=== PATIENT | female | born 1950 | race Two or more races ===

== ENCOUNTER 2020-12-21 09:25 | Outpatient (REF) | payer MEDICARE, SELFPAY ==
[2020-12-21 10:18] LABS: Alanine Aminotransferase 13 U/L (0-31); Albumin Level 4.1 g/dL (3.5-5.0); Alkaline Phosphatase 63 U/L (39-117); Anion Gap 16 (12-20); Aspartate Amino Transferase 15 U/L (5-31); Bilirubin Total 0.9 mg/dL (0.0-1.0); Blood Urea Nitrogen 18 mg/dL (9-16); Calcium 9.6 mg/dL (8.4-10.2); Carbon Dioxide 24 mmol/L (22-29); Chloride 101 mmol/L (96-108); Estimated Glomerular Filt Rate 53; Glucose Random 247 mg/dL (60-115); Potassium 4.6 mmol/L (3.3-5.1); Sodium 136 mmol/L (135-145)
== END 2020-12-21 09:26 | disposition home or self-care (01) ==
LOC: HO.LAB 09:25
PROVIDERS: PCP Internal Medicine; Visit Provider Student in an Organized Health Care Education/Training Program
DX: M81.0 Age-related osteoporosis without current pathological fracture (principal)
CPT/HCPCS: 36415; 80053

== ENCOUNTER 2020-12-27 10:34 | Outpatient (REF) | payer MEDICARE, SELFPAY | END 2020-12-27 10:35 | disposition home or self-care (01) | LOC: HO.MDS 10:34 | PROVIDERS: PCP Internal Medicine; Visit Provider Student in an Organized Health Care Education/Training Program | DX: M81.0 Age-related osteoporosis without current pathological fracture (principal) | CPT/HCPCS: 96365; J3489 ==

== ENCOUNTER 2021-02-01 13:33 | Outpatient (REF) | payer MEDICARE, SELFPAY ==
--- NOTE | ~2021-02-01 | MM_ITS ---
EXAMINATION: BONE DENSITOMETRY CLINICAL INDICATION: Screening for osteoporosis. COMPARISON: Previous BD dated 10/24/2018 and baseline BD dated 11/22/2006. TECHNIQUE: Using a [employer] DXA System (software version: 13.1) manufactured by [employer], dual-energy x-ray absorptiometry was performed of the lumbar spine and left hip. The images are of good technical quality. Summary results are attached. FINDINGS: AP SPINE L1-L4: Current: BMD 0.945 g/cm2, Z-score 0.2, T-score -2.0, osteopenia, 0.4% decrease from previous, 6.1% increase from baseline (<5% change is not significant). Prior: BMD 0.949 g/cm2. Baseline: BMD 0.891 g/cm2. LEFT FEMUR, NECK: Current: BMD 0.866 g/cm2, Z-score 0.8, T-score -1.2, osteopenia. Prior: BMD 0.816 g/cm2. Baseline: BMD 0.852 g/cm2. LEFT FEMUR, TOTAL: Current: BMD 0.985 g/cm2, Z-score 1.7, T-score -0.2, normal, 0.8% decrease from previous, 2.4% decrease from baseline (<5% change is not significant). Prior: BMD 0.993 g/cm2. Baseline: BMD 1.009 g/cm2. IDENTIFIED RISK FACTORS: Height loss, menopause, secondary osteoporosis, osteoporosis. HISTORY OF FRACTURE: None listed. MEDICATIONS: Calcium. MM/XR DEXA axial skeleton IMPRESSION: 1. DIAGNOSIS: Osteopenia based on the lowest T-score value of -2.0 in the lumbar spine applying World Health Organization criteria. 2. 10-YEAR FRACTURE RISK PREDICTION, FRAX: Major osteoporotic fracture (clinical spine, forearm, hip or shoulder) 5.2%. Hip fracture 0.7%. 3. Treatment Recommendations: NOF guidelines recommend consideration for treatment in postmenopausal women and men age 50 and older presenting with the following: -A hip or vertebral (clinical or morphometric) fracture. -T-score less than or equal to -2.5 at the femoral neck or spine after appropriate evaluation to exclude secondary causes. -Low bone mass at the hip or spine and a 10-year fracture probability by FRAX of greater than or equal to 3% for hip fracture or greater than or equal to 20% for major osteoporotic fracture based on the [place] adapted WHO algorithm. 4. Other Recommendations: All treatment decisions require clinical judgment and consideration of individual patient factors, including patient preferences, comorbidities, previous drug use, risk factors not captured in the FRAX model (e.g. frailty, falls, vitamin D deficiency, increased bone turnover, interval significant decline in bone density) and possible under or overestimation of fracture risk by FRAX. Additional medical evaluation for secondary cause of low bone mineral density may be appropriate. FUTURE SCAN RECOMMENDATION: People with diagnosed cases of osteoporosis or at high risk for fracture should have regular bone mineral density tests. For patients eligible for Medicare, routine testing is allowed once every 2 years. The testing frequency can be increased to one year for patients who have rapidly progressing disease, those who are receiving or discontinuing medical therapy to restore bone mass, or have additional risk factors.
--- NOTE | ~2021-02-01 | MM_ITS ---
EXAMINATION: MM SCREENING DIGITAL BREAST TOMOSYNTHESIS, BILATERAL CLINICAL INFORMATION: Screening. Asymptomatic. The lifetime risk of breast cancer based on the Tyrer-Cuzick Model is 2%. COMPARISON: Mammography: 08/26/2018, 11/10/2016, 11/09/2015. TECHNIQUE: Digital breast tomosynthesis is performed in both the craniocaudal and mediolateral oblique views along with computer-aided detection (CAD). Synthesized 2D images are generated from the tomosynthesis. Additional left MLO view is provided. FINDINGS: There are scattered areas of fibroglandular density (ACR BI-RADS breast composition Category b). There are no significant masses, abnormal calcifications, or other abnormalities. Parenchymal pattern is similar to prior studies. No developing density. No significant changes. Low left axillary tail node is stable. MM/MM tomosynthesis screening BI IMPRESSION: No mammographic evidence of malignancy. ASSESSMENT: BI-RADS 2: Benign RECOMMENDATION: Routine annual mammography screening. This patient's information was entered into a reminder system with a target due date for their next mammogram.
== END 2021-02-01 13:34 | disposition home or self-care (01) ==
LOC: HO.MAMMO 13:33
PROVIDERS: PCP Internal Medicine; Visit Provider Internal Medicine
DX: Z12.31 Encounter for screening mammogram for malignant neoplasm of breast (principal); Z13.820 Encounter for screening for osteoporosis; M85.80 Other specified disorders of bone density and structure, unspecified site; Z78.0 Asymptomatic menopausal state; Z79.899 Other long term (current) drug therapy
CPT/HCPCS: 77063; 77067; 77080

== ENCOUNTER → 2021-02-09 13:20 | Outpatient (BNVA) | payer MEDICARE, SELFPAY | PROVIDERS: Visit Provider Nurse Practitioner Family | DX: M81.0 Age-related osteoporosis without current pathological fracture (principal) | CPT/HCPCS: 99212 ==

== ENCOUNTER 2021-05-17 11:47 | Outpatient (REF) | payer MEDICARE, SELFPAY ==
--- NOTE | ~2021-05-17 | CT_ITS ---
EXAMINATION: CT ABDOMEN AND PELVIS WITH CONTRAST CLINICAL INFORMATION: Abnormal weight loss. COMPARISON: None TECHNIQUE: Multidetector volumetric images were obtained from the superior aspect of the liver through the pubic symphysis following administration 85 mL of Omnipaque 350 intravenous contrast. Sagittal and coronal reformatted images were obtained on the technologist's workstation. Oral contrast: No. This CT examination was performed using dose optimization techniques as appropriate, variously including the following: *Automated exposure control *Adjustment of mA and/or kV according to patient size (this includes techniques or standardized protocols for targeted exams where dose is matched to indication/reason for exam; i.e. extremities or head) *Use of iterative reconstruction technique DLP: 207 mGy-cm FINDINGS: LUNG BASES: The lungs are hyperinflated with plate-like atelectasis right middle lobe. LIVER, GALLBLADDER, AND BILIARY TREE: The liver is normal in size, lobulated shape, and attenuation. There is focal attenuation seen in the right hepatic lobe along the ligament likely focal fatty infiltration. There is a punctate 4 mm hypodensity in the right hepatic lobe, probable cyst, however, too small to completely characterize. No additional lesions seen. No biliary ductal dilatation is present. There are punctate radiopaque densities along the dependent portion of the gallbladder suspicious for small stones or gallbladder wall calcification. No gallbladder wall thickening seen. PANCREAS: Unremarkable. SPLEEN: Unremarkable. ADRENAL GLANDS: Unremarkable. KIDNEYS AND URETERS: The kidneys are normal in size, shape, and attenuation. No hydronephrosis, hydroureter, or calculi seen. No perinephric stranding. There is a 2.1 x 2.0 cm cyst midpole right kidney. Also visualized is a 1.5 x 1.2 cm cyst midpole left kidney. There are bilateral parapelvic renal cysts and bilateral extrarenal kidney pelvises noted. BLADDER: Unremarkable. GASTROINTESTINAL TRACT: There is moderate scattered stool seen throughout the colon without distention. Moderate oral contrast is seen in the colon and small bowel loops with small bowel loop caliber to be normal. There is a filling defect along the posterior cecum measuring 2.2 x 2.5 cm on axial image 63/5, suspicious for an underlying lesion. The appendix is not visualized. The stomach is nondistended. ABDOMINAL WALL: No significant hernia is appreciated. LYMPH NODES: There is a 4 mm mesenteric nodule in the mid pelvis axial image 58/3 and a right ileocecal mesenteric 6 mm lymph node axial image 53/3. These are within normal limits. VASCULAR: Unremarkable. PELVIC VISCERA: The uterus is retroverted and appears unremarkable. No adnexal mass or free fluid seen. OSSEOUS STRUCTURES: There is grade 1 retrolisthesis L2 over L3 with moderate ventral spondylosis. There is gas and vacuum disc phenomena L4-L5 disc level. No aggressive lytic or sclerotic process seen. CT/CT abdomen pelvis w con IMPRESSION: Suspect soft tissue mass along the posterior cecum. Recommend endoscopy. There is moderate stool and oral contrast seen throughout the colon suggesting mild constipation and also limiting colonic evaluation. The appendix is not seen. The small bowel loops are unremarkable. Small 4 mm lower mesenteric lymph node in the lower pelvis and 6 mm lymph node in the right ileocecal mesentery are seen but are within normal limits. Fleischner guidelines were followed.
[2021-05-17 13:00] LABS: Blood Urea Nitrogen 24 mg/dL (9-16); Estimated Glomerular Filt Rate 56
[2021-05-17] MEDS: iohexoL 350 MG/ML 100 ML INFUS..BTL IV (15:12)
[2021-05-17] MEDS: Barium Sulfate Oral (Berry) 450 ML ORAL.SUSP 900 ML PO (15:12)
== END 2021-05-17 11:48 | disposition home or self-care (01) ==
LOC: HO.CT 11:47
PROVIDERS: Visit Provider Internal Medicine
DX: R63.4 Abnormal weight loss (principal)
CPT/HCPCS: 36415; 74177; 82565; 84520; Q9967

== ENCOUNTER 2021-08-05 10:42 | Outpatient (REF) | payer MEDICARE, SELFPAY ==
[2021-08-05 12:12] LABS: MANUAL DIFF FLAG NO
[2021-08-05 12:36] LABS: Basophils Percent Auto 0.4 % (0-2); Eosinophils Absolute Auto 0.9 X10*3/uL (0.0-0.4); Eosinophils Percent Auto 9.6 % (0-4); Hematocrit 36.8 % (37.0-47.0); Hemoglobin 11.4 g/dl (12.0-16.0); Imm Gran Abs Auto 0.02 X10*3/uL (0.00-0.03); Imm Gran Pct Auto 0.2 % (0.0-0.4); Lymphocytes Absolute Auto 3.4 X10*3/uL (1.2-4.9); Lymphocytes Percent Auto 37.4 % (20-40); Mean Corpuscular Hemoglobin 28.6 pg (27.0-33.0); Mean Corpuscular Volume 92.5 fL (80.0-98.0); Mean Platelet Volume 10.1 fL (9.4-12.3); Monocytes Absolute Auto 0.6 X10*3/uL (0.1-1.2); Monocytes Percent Auto 7.1 % (2-11); Neutrophils Absolute Auto 4.1 x10*3/uL (2.0-8.3); Neutrophils Percent Auto 45.3 % (45-73); Platelet Count 269 X10*3/uL (160-400); Red Blood Count 3.98 X10*6/uL (4.20-5.50); Red Cell Distribution Width 14.6 % (11.0-16.0)
[2021-08-05 12:51] LABS: Alanine Aminotransferase 11 U/L (0-31); Albumin Level 3.9 g/dL (3.5-5.0); Alkaline Phosphatase 54 U/L (39-117); Anion Gap 10 (12-20); Aspartate Amino Transferase 14 U/L (5-31); Bilirubin Total 0.3 mg/dL (0.0-1.0); Blood Urea Nitrogen 24 mg/dL (9-16); Calcium 9.5 mg/dL (8.4-10.2); Carbon Dioxide 30 mmol/L (22-29); Chloride 102 mmol/L (96-108); Estimated Glomerular Filt Rate 59; Glucose Random 184 mg/dL (60-115); Potassium 4.8 mmol/L (3.3-5.1); Sodium 137 mmol/L (135-145); Total Protein 6.6 g/dL (6.5-8.0)
== END 2021-08-05 10:43 | disposition home or self-care (01) ==
LOC: HO.LAB 10:42
PROVIDERS: PCP Internal Medicine; Referring Provider Internal Medicine; Visit Provider Nurse Practitioner
DX: R93.3 Abnormal findings on diagnostic imaging of other parts of digestive tract (principal); R63.4 Abnormal weight loss; Z98.890 Other specified postprocedural states
CPT/HCPCS: 36415; 80053; 82378; 85025; 99202

== ENCOUNTER 2021-08-30 12:18 | Day surgery (SDC) | payer MEDICARE, SELFPAY ==
[2021-08-30 12:46] VITALS: BP 121/50; PULSE 63; RESP 19; TEMP 36.8; O2SAT 98; BMI 23.3
[2021-08-30 12:47] LABS: Glucose, Whole Blood 138 mg/dL (60-115)
--- NOTE | 2021-08-30 12:56 | P.HPSUR_ITS ---
Pre-Procedural Eval Section A Date of Service: 08/30/21 Section B Chief Complaint: Abnormal weight loss,abnormal findings Relevant Family History (Specify if Yes): No Relevant Social History: None Present Medications: see Short Stay Collaborative assessment Medical History: Significant History (Hypertension High cholesterol Depression History of esophageal stricture Fibromyalgia syndrome Chronic low back pain Diabetes Insomnia Osteoporosis) History of Previous Operations: Relevant previous surgery/procedure and date(s) (H/O colonoscopy History of varicose vein ligation and stripping S/P trigger finger release) Allergies: Allergies Allergy/AdvReac Type Severity Reaction Status Date / Time No Known Drug Allergies Allergy Unknown UNKNOWN Verified 08/05/21 11:13 Review of Systems Sugical H&P ROS: Negative: Constitution, Cardiovascular, Respiratory, Neur ological, Psychiatric, Hem-Onc, Allergic/Immunologic, Gastrointestinal, Genitourinary, Musculoskeletal, Integumentary, Endocrine and Eyes/Ears/Nose/Throat Exam Surgical H&P Exam: Normal: HEENT, Normal: Heart, Normal: Lungs, Normal: Extremities, Normal: Abdomen, Normal: Skin and Normal: Neurological Plan Diagnosis/Plan: Unchanged I have reviewed the history and physical and performed a pertinent physical examination on my patient. No changes have occurred unless specified.
--- NOTE | 2021-08-30 13:06 | HO.ANESPROP2 ---
HPI - Anesthesia Eval Consult details Narrative: 71 F for EGD and colonoscopy chronic nasal congestion PMFSH Active Problems Active Problems: All Active Problems (Updated 08/05/21 @ 11:49 by CLAYTON Keane) Weight loss (Acute) Abnormal CT scan, colon (Acute) Insomnia (Acute) Depression (Acute) Chronic low back pain (Acute) Hypertension (Acute) Fibromyalgia (Acute) Hypercholesterolemia (Acute) Lumbar spondylitis (Acute) Diabetes mellitus (Acute) Osteopenia (Acute) Osteoporosis (Acute) Family History Family history of problems with anesthesia: No Surgical History Surgical History (Updated 08/05/21 @ 11:00 by CLAYTON Keane) H/O colonoscopy History of varicose vein ligation and stripping S/P trigger finger release History of Problems with Anesthesia: No Social History Social History Housing: Apartment Are you a primary hemodialysis patient care specialist to a significant other at home: No Do you presently have visiting nurse or other home services: No Alcohol intake: never Patient Tobacco Use Status: Never used Tobacco e-Cigarette/Vaping Use: Never Used Use of substances other than those prescribed or required for medical reasons: No Are you DNR?: No Advance Directives: No Advance Directives Information Provided: Yes Recently lost weight without trying: No Nutrition Risks: No Nutritional Risk service: No Current occupation: retired [employer] Allergies Allergy/AdvReac Type Severity Reaction Status Date / Time No Known Drug Allergies Allergy Unknown UNKNOWN Verified 08/05/21 11:13 Home Medications Medication Instructions Recorded Confirmed Last Taken Type acetaminophen 500 mg capsule 1,000 mg PO Q6H PRN 02/09/21 Unknown History (Mapap (acetaminophen)) aspirin 81 mg tablet,delayed 81 mg PO DAILY 02/09/21 08/27/21 History release (Adult Low Dose Aspirin) calcium carbonate 500 mg calcium 1,000 mg PO DAILY 02/09/21 Unknown History (1,250 mg) tablet (Oyster Shell Calcium) mecobalamin (vitamin B12) 1,000 1,000 mcg PO DAILY 02/09/21 Unknown History mcg chewable tablet metformin 500 mg tablet,extended 1,000 mg PO BID tab 02/09/21 Unknown History release 24hr multivitamin-ferrous 1 tab PO DAILY 02/09/21 Unknown History fumarate-folic acid 18 mg-400 mcg tablet (Certavite-Antioxidant) simvastatin 40 mg tablet 40 mg PO DAILY 02/09/21 Unknown History latanoprost 0.005 % eye drops 1 drp OPHTHALMIC (EYE) QPM 08/05/21 Unknown History omega 3-kju-ycf-fish oil 100 cap PO 08/05/21 08/27/21 History mg-160 mg-1,000 mg capsule (Fish Oil) Exam Exam Date and Time: August 30, 2021 1306 Height,Weight and Vital Signs: Height 4 ft 8 in Weight 47.174 kg Last Vital Signs Temp 98.2 F 08/30/21 12:46 Pulse 63 08/30/21 12:46 Resp 19 08/30/21 12:46 BP 121/50 L 08/30/21 12:46 Pulse Ox 98 08/30/21 12:46 Pertinent Lab Results Pertinent Lab Results: Laboratory Tests 08/30/21 12:43 POC Glucose 138 H Airway Mallampati Class: II Loose/Missing/Broken Teeth: Yes (Poor dentation ) Assessment and Plan Final Anesthetic Review Family History of Problems with Anesthesia: No History of Problems with Anesthesia: No NPO: Yes ASA Class: II Final Preanesthetic Review: Meds/Allgs Chart Reviewed, Consent Obtained/Reviewed and Anes Risks/Benef Reviewed Patient Risk: Intermediate Procedure Risk: Intermediate
--- NOTE | 2021-08-30 13:18 | P.BOP_ITS ---
Brief Operative Note Date of Service: 08/30/21 Pre-op diagnosis: weight loss abn imaging Post-op diagnosis: same Procedure: see op note Surgeon: Kaylene Duncan MD Anesthesia: MAC Was an Machine Operator Packaging used for this Procedure?: No Estimated blood loss (mL): 0 Condition: stable Disposition: PACU
--- NOTE | 2021-08-30 13:18 | P.OP_ITS ---
Operative Note Operative Note Date of Service: 08/30/21 Narrative: Operative Information Procedure Description: EGD, Colonoscopy FLEXIBLE TRANSORAL UPPER GASTROINTESTINAL ENDOSCOPY AND COLONOSCOPY PROCEDURE NOTE UPPER ENDOSCOPY Consent: Indications for the procedure and potential complications of bleeding, perforation, reaction to medications and missed diagnosis were discussed with the patient and informed consent was obtained. Instrument: Olympus GIF H 190 J mid size upper endoscope Monitoring: Vital signs and clinical assessment, continuous EKG monitoring, Pulse oximetry, Carbon Dioxide monitoring and blood pressure monitoring were done throughout the procedure. Procedure: The patient was placed in the left lateral decubitis position and pre-procedure medications were administered and a bite block was placed. The endoscope was inserted into the mouth and advanced under direct vision to the third part of duodenum. A careful inspection was made as the upper endoscope was withdrawn including a retroflexed examination of the proximal stomach; Findings and interventions are described below. Findings: Larynx:normal Esophagus: GE junction at 33 cm, diaphragm hiatus at 35 cm, slightly irregular GEJ bx taken, 2 cm hiatal hernia noted Stomach: Mild gastritis . Biopsies were obtained. Grade 2 flap valve on retroflexed examination of the cardia. Duodenum: Normal bulb and descending duodenum, bx taken Intervention: Biopsies as noted above COLONOSCOPY Instrument: Olympus variable stiffness pediatric scope 190L Colonoscopy Monitoring: Vital signs and clinical assessment, continuous EKG monitoring, Pulse oximetry, Carbon Dioxide monitoring and blood pressure monitoring were done throughout the procedure. Colon withdrawal time was 8 minutes. Procedure: The patient was placed in the left lateral decubitis position and pre-procedure medications were administered. After a digital rectal examination of the ano-rectum, the video colonoscope was inserted into the rectum and advanced through the colon to the cecum/TI. The colonoscope was slowly withdrawn in a retrograde panoramic fashion and the colon mucosa was carefully examined including a retroflexed view of the rectum. Findings and interventions are described below. Procedure Difficulty: moderate due to looping Findings: Terminal Ileum-normal Cecum: diminutive polyp 2-3 mm removed with cold forceps, random bx taken from cecum and ascending colon Ascending Colon: normal Transverse Colon -normal Descending Colon:normal Sigmoid Colon: normal Rectum: Retroflexion with small internal hemorrhoids, grade I Anorectum - normal Colon preparation: Cameron Bowel Preparation Scale Right colon; 3 Transverse colon: 3 Left colon; 3 (0 = Unprepared colon segment with mucosa not seen due to solid stool that cannot be cleared. 1 = Portion of mucosa of the colon segment seen, but other areas of the colon segment not well seen due to staining, residual stool and/or opaque liquid. 2 = Minor amount of residual staining, small fragments of stool and/or opaque liquid, but mucosa of colon segment seen well. 3 = Entire mucosa of colon segment seen well with no residual staining, small fragments of stool or opaque liquid) Impression and Post Procedure Diagnosis: Endoscopy Findings: small hiatal hernia Colonoscopy Findings: cecal polyp internal hemorrhoids Plan: Await Pathology results Repeat Colonoscopy in 5 years if adenomatous polyp or earlier if clinically indicated. If hyperplastic then 10 yr if health allows High fiber diet leaflet avoid straining at stool, epsom salts and sitz bath, anusol supps or cream No mass seen in cecum or filling defect as noted on CT scan, recommend repeat CT scan Above findings were reviewed with the patient and relevant handouts were provided if indicated.
[2021-08-30 13:52] VITALS: BP 105/53; PULSE 58; RESP 18; TEMP 36.2; O2SAT 100
[2021-08-30 14:07] VITALS: PULSE 60; RESP 18; TEMP 36.2; O2SAT 98
== END 2021-08-30 15:08 | disposition home or self-care (01) ==
PROVIDERS: PCP Internal Medicine; Visit Provider Internal Medicine Gastroenterology
PROC: (CPT 45380; principal; 2021-08-30 13:30)
DX: R93.3 Abnormal findings on diagnostic imaging of other parts of digestive tract (principal); K63.5 Polyp of colon; K64.0 First degree hemorrhoids; R63.4 Abnormal weight loss; Z68.1 Body mass index [BMI] 19.9 or less, adult; K29.60 Other gastritis without bleeding; K29.80 Duodenitis without bleeding; K44.9 Diaphragmatic hernia without obstruction or gangrene; I10 Essential (primary) hypertension; E11.9 Type 2 diabetes mellitus without complications; Z79.84 Long term (current) use of oral hypoglycemic drugs; Z79.899 Other long term (current) drug therapy
CPT/HCPCS: 45380; 43239; 82947; 88305; 88342

== ENCOUNTER → 2021-09-30 10:31 | Outpatient (BNVA) | payer MEDICARE, SELFPAY | PROVIDERS: PCP Internal Medicine; Referring Provider Internal Medicine; Visit Provider Nurse Practitioner | DX: R93.3 Abnormal findings on diagnostic imaging of other parts of digestive tract (principal); K21.9 Gastro-esophageal reflux disease without esophagitis; Z98.890 Other specified postprocedural states | CPT/HCPCS: 99212 ==

== ENCOUNTER → 2021-10-27 13:08 | Outpatient (BNVA) | payer MEDICARE, SELFPAY | PROVIDERS: PCP Internal Medicine; Referring Provider Internal Medicine; Visit Provider Nurse Practitioner | DX: K21.9 Gastro-esophageal reflux disease without esophagitis (principal); R93.3 Abnormal findings on diagnostic imaging of other parts of digestive tract | CPT/HCPCS: 99212 ==

== ENCOUNTER 2022-02-03 13:02 | Outpatient (REF) | payer MEDICARE, SELFPAY ==
--- NOTE | ~2022-02-03 | MM_ITS ---
EXAMINATION: MM SCREENING DIGITAL BREAST TOMOSYNTHESIS, BILATERAL CLINICAL INFORMATION: Screening. Asymptomatic. The lifetime risk of breast cancer based on the Tyrer-Cuzick Model is 2%. COMPARISON: Mammography: 02/01/2021, 08/26/2018, 11/10/2016 TECHNIQUE: Digital breast tomosynthesis is performed in both the craniocaudal and mediolateral oblique views along with computer-aided detection (CAD). Synthesized 2D images are generated from the tomosynthesis. FINDINGS: There are scattered areas of fibroglandular density (ACR BI-RADS breast composition Category b). There are no significant masses, abnormal calcifications, or other abnormalities. Parenchymal pattern is similar to prior studies. The axilla and skin contours are unremarkable. MM/MM tomosynthesis screening BI IMPRESSION: No mammographic evidence of malignancy. ASSESSMENT: BI-RADS 1: Negative RECOMMENDATION: Routine annual mammography screening. This patient's information was entered into a reminder system with a target due date for their next mammogram.
== END 2022-02-03 13:03 | disposition home or self-care (01) ==
LOC: HO.MAMMO 13:02
PROVIDERS: Visit Provider Internal Medicine
DX: Z12.31 Encounter for screening mammogram for malignant neoplasm of breast (principal)
CPT/HCPCS: 77063; 77067

== ENCOUNTER 2022-02-07 14:14 | Outpatient (REF) | payer MEDICARE, SELFPAY ==
--- NOTE | ~2022-02-07 | CT_ITS ---
EXAMINATION: CT ABDOMEN AND PELVIS WITHOUT CONTRAST CLINICAL INFORMATION: Abnormal finding on diagnostic imaging of other organ COMPARISON: Previous CT of the abdomen and pelvis February 2021 TECHNIQUE: Multidetector volumetric imaging was performed from the superior aspect of the liver through the pubic symphysis. Sagittal and coronal reformatted images were obtained on the technologist's workstation. This CT examination was performed using dose optimization techniques as appropriate, variously including the following: *Automated exposure control *Adjustment of mA and/or kV according to patient size (this includes techniques or standardized protocols for targeted exams where dose is matched to indication/reason for exam; i.e. extremities or head) *Use of iterative reconstruction technique DLP: 268 mGy-cm FINDINGS: LUNG BASES: There is a 4 mm right lower lobe pulmonary nodule axial image 9 series 3 that is stable. The lung bases are otherwise clear. LIVER, GALLBLADDER, AND BILIARY TREE: The liver is normal in size, shape, and attenuation. No focal hepatic lesion or biliary ductal dilatation is present. The gallbladder is contracted. There is a small gallstone in the gallbladder. PANCREAS: Unremarkable. SPLEEN: Unremarkable. ADRENAL GLANDS: Unremarkable. KIDNEYS AND URETERS: There are small low-attenuation renal lesions suggestive of cysts. These appear stable. No imaging follow-up. Kidneys are otherwise normal. BLADDER: Unremarkable. GASTROINTESTINAL TRACT: There is a large amount stool throughout the colon and distention suggestive of severe constipation. No mass is appreciated however evaluation is limited due to large amount of stool. Small bowel is normal. The stomach is normal. The appendix is not seen. ABDOMINAL WALL: No significant hernia is appreciated. LYMPH NODES: Normal. VASCULAR: Unremarkable. PELVIC VISCERA: Unremarkable. OSSEOUS STRUCTURES: Mild degenerative changes of the spine. There is mild anterior subluxation of L4 with respect to L3 and L5 probably related to facet arthritis. CT/CT abdomen pelvis wo IV con IMPRESSION: Severe constipation. Bilateral renal cysts. Fleischner guidelines were followed.
[2022-02-07] MEDS: Barium Sulfate Oral (Vanilla) 450 ML ORAL.SUSP 900 ML PO (16:32)
== END 2022-02-07 14:15 | disposition home or self-care (01) ==
LOC: HO.CT 14:14
PROVIDERS: Visit Provider Nurse Practitioner
DX: R93.3 Abnormal findings on diagnostic imaging of other parts of digestive tract (principal)
CPT/HCPCS: 74176

== ENCOUNTER 2022-02-10 15:06 | Outpatient (REF) | payer MEDICARE, SELFPAY ==
[2022-02-10 16:02] LABS: Alanine Aminotransferase 15 U/L (0-31); Albumin Level 4.1 g/dL (3.5-5.0); Alkaline Phosphatase 66 U/L (39-117); Anion Gap 14 (12-20); Aspartate Amino Transferase 17 U/L (5-31); Bilirubin Total 0.3 mg/dL (0.0-1.0); Blood Urea Nitrogen 21 mg/dL (9-16); Calcium 9.2 mg/dL (8.4-10.2); Carbon Dioxide 26 mmol/L (22-29); Chloride 104 mmol/L (96-108); Estimated Glomerular Filt Rate 52; Glucose Random 151 mg/dL (60-115); Potassium 5.3 mmol/L (3.3-5.1); Sodium 139 mmol/L (135-145); Total Protein 7.2 g/dL (6.5-8.0)
[2022-02-10 16:22] LABS: Vitamin D 25-OH Total 40.3 ng/mL (>30)
== END 2022-02-10 15:07 | disposition home or self-care (01) ==
LOC: HO.LAB 15:06
PROVIDERS: Visit Provider Nurse Practitioner Family
DX: M81.0 Age-related osteoporosis without current pathological fracture (principal)
CPT/HCPCS: 36415; 80053; 82306; 99212

== ENCOUNTER 2022-02-14 10:27 | Outpatient (REF) | payer OTHER, SELFPAY ==
[2022-02-14 12:36] LABS: Blood Urea Nitrogen 29 mg/dL (9-16); Estimated Glomerular Filt Rate 58; Potassium 5.1 mmol/L (3.3-5.1)
== END 2022-02-14 10:28 | disposition home or self-care (01) ==
LOC: HO.LAB 10:27
PROVIDERS: Nurse Practitioner; PCP Internal Medicine; Visit Provider Nurse Practitioner Family
DX: R93.3 Abnormal findings on diagnostic imaging of other parts of digestive tract (principal); E87.5 Hyperkalemia; K59.04 Chronic idiopathic constipation; K21.9 Gastro-esophageal reflux disease without esophagitis
CPT/HCPCS: 36415; 82565; 84132; 84520; 99212

== ENCOUNTER 2022-06-29 10:44 | Day surgery (SDC) | payer OTHER, SELFPAY ==
[2022-06-23 10:49] VITALS: BMI 24.2
--- NOTE | 2022-06-28 13:26 | P.CONAN_ITS ---
Documented by User: Eugenie Nagel NP 07/31/22 10:25 HPI - Anesthesia Eval Consult details Narrative: 72yo F for Upper Endoscopy s/p EGD 08/2021 with MAC [facility] Active Problems Active Problems: All Active Problems (Updated 02/14/22 @ 12:55 by CLAYTON Keane) Chronic idiopathic constipation (Acute) GERD (gastroesophageal reflux disease) (Acute) Weight loss (Acute) Insomnia (Acute) Depression (Acute) Chronic low back pain (Acute) Hypertension (Acute) Fibromyalgia (Acute) Hypercholesterolemia (Acute) Lumbar spondylitis (Acute) Diabetes mellitus (Acute) Osteopenia (Acute) Osteoporosis (Acute) Past Medical History Medical History (Updated 07/13/22 @ 12:03 by CLAYTON Keane) Abnormal CT scan, colon Chronic low back pain Depression Diabetes mellitus Fibromyalgia Hypercholesterolemia Hypertension Insomnia Lumbar spondylitis Osteopenia Osteoporosis Family History Family History Family/Other Breast cancer Family history of problems with anesthesia: No Surgical History Surgical History (Updated 07/13/22 @ 11:49 by MARY Eubanks) H/O colonoscopy History of esophagogastroduodenoscopy (EGD) History of varicose vein ligation and stripping S/P trigger finger release History of Problems with Anesthesia: No Social History Social History Housing: Apartment Are you a primary administrator health care facility to a significant other at home: No Do you presently have visiting nurse or other home services: No Alcohol intake: never Patient Tobacco Use Status: Never used Tobacco e-Cigarette/Vaping Use: Never Used service: No Current occupation: retired [employer] Allergies Allergy/AdvReac Type Severity Reaction Status Date / Time No Known Drug Allergies Allergy Unknown UNKNOWN Verified 02/14/22 11:37 Home Medications Medication Instructions Recorded Confirmed Last Taken Type acetaminophen 500 mg capsule 1,000 mg PO Q6H PRN 02/09/21 02/10/22 Unknown History (Mapap (acetaminophen)) aspirin 81 mg tablet,delayed 81 mg PO DAILY 02/09/21 02/10/22 08/27/21 History release (Adult Low Dose Aspirin) calcium carbonate 500 mg calcium 1,000 mg PO DAILY 02/09/21 02/10/22 Unknown History (1,250 mg) tablet (Oyster Shell Calcium) mecobalamin (vitamin B12) 1,000 1,000 mcg PO DAILY 02/09/21 02/10/22 Unknown History mcg chewable tablet metformin 500 mg tablet,extended 1,000 mg PO BID 02/09/21 02/10/22 Unknown History release 24hr simvastatin 40 mg tablet 40 mg PO DAILY 02/09/21 02/10/22 Unknown History latanoprost 0.005 % eye drops 1 drp ophthalmic (eye) QPM 08/05/21 02/10/22 Unknown History omega 9-gig-rtm-fish oil 100 cap PO 08/05/21 02/10/22 08/27/21 History mg-160 mg-1,000 mg capsule (Fish Oil) insulin glargine 100 unit/mL (3 15 unit subcut QPM 02/10/22 02/10/22 Unknown History mL) subcutaneous pen (Lantus Solostar U-100 Insulin) lancets 33 gauge (OneTouch Delica #100 ea 02/10/22 02/10/22 Unknown History Plus Lancet) pen needle, diabetic 32 gauge x #50 ea 02/10/22 02/10/22 Unknown History (UltiCare Pen Needle) alcohol swabs (Alcohol Prep Pads) 0 pad topical QID 02/14/22 Unknown History citalopram 20 mg tablet 20 mg PO QAM 02/14/22 Unknown History citalopram 40 mg tablet 40 mg PO QAM 02/14/22 Unknown History fexofenadine 180 mg tablet 180 mg PO DAILY PRN allergies 02/14/22 Unknown History (Allergy Relief (fexofenadine)) fluticasone propionate 50 1 spray intranasal DAILY 02/14/22 Unknown History mcg/actuation nasal spray,suspension gabapentin 300 mg capsule 300 mg PO BID 02/14/22 Unknown History repaglinide 0.5 mg tablet 0.5 mg PO TID 02/14/22 Unknown History timolol maleate 0.5 % eye drops 1 drp ophthalmic (eye) QA 02/14/22 Unknown History ferrous gluconate 324 mg (38 mg 324 mg PO QAM 07/13/22 Unknown History iron) tablet mirtazapine 30 mg tablet 30 mg PO BEDTIME 02/09/23 Unknown History odakavsu-pbn-mfvhl acid 0.4 1 tab PO QAM 07/13/22 Unknown History mg-lycopene 300 mcg-lutein 250 mcg tablet (Cerovite Senior) Exam Exam Date and Time: June 28, 2022 1326 Height,Weight and Vital Signs: Height 4 ft 8 in Weight 48.988 kg Pertinent Lab Results Pertinent Lab Results: Laboratory Tests 08/05/21 02/10/22 02/14/22 12:11 15:18 10:43 WBC 9.0 Hgb 11.4 L Hct 36.8 L Plt Count 269 Sodium 139 Potassium 5.1 Chloride 104 Carbon Dioxide 26 BUN 29 H Creatinine 0.95 Assessment and Plan Final Anesthetic Review Family History of Problems with Anesthesia: No History of Problems with Anesthesia: No Documented by User: Karl Mirza MD 08/09/22 07:50 [facility] Past Medical History Medical History (Updated 07/13/22 @ 12:03 by CLAYTON Keane) Abnormal CT scan, colon Chronic low back pain Depression Diabetes mellitus Fibromyalgia Hypercholesterolemia Hypertension Insomnia Lumbar spondylitis Osteopenia Osteoporosis Family History Family History Family/Other Breast cancer Surgical History Surgical History (Updated 07/13/22 @ 11:49 by MARY Eubanks) H/O colonoscopy History of esophagogastroduodenoscopy (EGD) History of varicose vein ligation and stripping S/P trigger finger release Social History Social History Housing: Apartment Are you a primary administrator health care facility to a significant other at home: No Do you presently have visiting nurse or other home services: No Alcohol intake: never Patient Tobacco Use Status: Never used Tobacco e-Cigarette/Vaping Use: Never Used service: No Current occupation: retired Meds Allergies Allergy/AdvReac Type Severity Reaction Status Date / Time No Known Drug Allergies Allergy Unknown UNKNOWN Verified 02/14/22 11:37 Home Medications Medication Instructions Recorded Confirmed Last Taken Type acetaminophen 500 mg capsule 1,000 mg PO Q6H PRN 02/09/21 02/10/22 Unknown History (Mapap (acetaminophen)) aspirin 81 mg tablet,delayed 81 mg PO DAILY 02/09/21 02/10/22 08/27/21 History release (Adult Low Dose Aspirin) calcium carbonate 500 mg calcium 1,000 mg PO DAILY 02/09/21 02/10/22 Unknown History (1,250 mg) tablet (Oyster Shell Calcium) mecobalamin (vitamin B12) 1,000 1,000 mcg PO DAILY 02/09/21 02/10/22 Unknown History mcg chewable tablet metformin 500 mg tablet,extended 1,000 mg PO BID 02/09/21 02/10/22 Unknown History release 24hr simvastatin 40 mg tablet 40 mg PO DAILY 02/09/21 02/10/22 Unknown History latanoprost 0.005 % eye drops 1 drp ophthalmic (eye) QPM 08/05/21 02/10/22 Unknown History omega 9-nya-qay-fish oil 100 cap PO 08/05/21 02/10/22 08/27/21 History mg-160 mg-1,000 mg capsule (Fish Oil) insulin glargine 100 unit/mL (3 15 unit subcut QPM 02/10/22 02/10/22 Unknown History mL) subcutaneous pen (Lantus Solostar U-100 Insulin) lancets 33 gauge (OneTouch Delica #100 ea 02/10/22 02/10/22 Unknown History Plus Lancet) pen needle, diabetic 32 gauge x #50 ea 02/10/22 02/10/22 Unknown History (UltiCare Pen Needle) alcohol swabs (Alcohol Prep Pads) 0 pad topical QID 02/14/22 Unknown History citalopram 20 mg tablet 20 mg PO QAM 02/14/22 Unknown History citalopram 40 mg tablet 40 mg PO QAM 02/14/22 Unknown History fexofenadine 180 mg tablet 180 mg PO DAILY PRN allergies 02/14/22 Unknown History (Allergy Relief (fexofenadine)) fluticasone propionate 50 1 spray intranasal DAILY 02/14/22 Unknown History mcg/actuation nasal spray,suspension gabapentin 300 mg capsule 300 mg PO BID 02/14/22 Unknown History repaglinide 0.5 mg tablet 0.5 mg PO TID 02/14/22 Unknown History timolol maleate 0.5 % eye drops 1 drp ophthalmic (eye) QAM 02/14/22 Unknown History ferrous gluconate 324 mg (38 mg 324 mg PO QAM 07/13/22 Unknown History iron) tablet mirtazapine 30 mg tablet 30 mg PO BEDTIME 07/13/22 Unknown History phjxqrgy-xkx-mjyvv acid 0.4 1 tab PO QAM 07/13/22 Unknown History mg-lycopene 300 mcg-lutein 250 mcg tablet (Cerovite Senior) Exam Airway Mallampati Class: I TM Dist: >3cm Neck ROM: Full Heart: ok Lungs: ok Assessment and Plan Assessment Anesthesia Assessment: Anesthesia Plan Discussed and Chart Reviewed Final Anesthetic Review NPO: Yes ASA Class: III Final Preanesthetic Review: No Changes in Pt Med Stat, Meds/Allgs Chart Reviewed, Consent Obtained/Reviewed and Anes Risks/Benef Reviewed Patient Risk: Intermediate Procedure Risk: Intermediate Anesthetic Plan Anesthetic Plan: MAC: and Agree w/ Assess. and Plan Disposition: Standard PACU
[2022-06-29 11:16] VITALS: BP 116/55; PULSE 56; RESP 18; TEMP 36.4; O2SAT 96
--- NOTE | 2022-06-29 11:18 | PC.NURSE ---
Dr. Sandoval updated that patient stated she has had cough/runny nose for more than one week and treating herself with OTC products. Vs WNL today. Patient states clear phlegm and nasal discharge. Lungs are diminished in bilateral bases. Dr. Sandoval ordered flu/covid/rsv swab - sent to lab.
[2022-06-29 11:37] LABS: Glucose, Whole Blood 146 mg/dL (60-115)
[2022-06-29] MEDS: Lactated Ringers 1,000 ML 100 ML IVCONT (11:48)
[2022-06-29 12:03] LABS: Influenza A PCR NEGATIVE (Negative); Influenza B PCR NEGATIVE (Negative); Resp Syncy Virus RNA Qual PCR NEGATIVE (Negative); SARS COV2 PCR INHOUSE NEGATIVE (Negative)
--- NOTE | 2022-06-29 13:42 | P.HPSUR_ITS ---
Pre-Procedural Eval Section A Date of Service: 06/29/22 Section B Chief Complaint: Gastro-esophageal reflux disease w/out esophagitis Details of Present Illness: 72 y.o F with PMH of GERD, CIC who is here for follow up EGD for ? BE on EGD 08/2021. Relevant Family History (Specify if Yes): No Relevant Social History: None Present Medications: see Short Stay Collaborative assessment Medical History: Significant History (as above ) Allergies: Allergies Allergy/AdvReac Type Severity Reaction Status Date / Time No Known Drug Allergies Allergy Unknown UNKNOWN Verified 02/14/22 11:37 Review of Systems Review of Systems Comment: Ten point ROS negative except as above Exam Exam Comment: Gen appear: No acute distress, well nourished HEENT: no icterus Chest: No overt resp distress Abd: soft, nontender, nondistended Psych: Stable affect, answering questions appropriately in [place] Neuro: A/Ox3 noted to move all extremities spontaneously Ext: no peripheral edema Plan Diagnosis/Plan: Unchanged I have reviewed the history and physical and performed a pertinent physical examination on my patient. No changes have occurred unless specified. Time Spent With Patient Time: Total time managing care of this patient today ____ minutes.
--- NOTE | 2022-06-29 13:49 | P.OP_ITS ---
Operative Note Operative Note Date of Service: 06/29/22 Narrative: Procedure: Esophagogastroduodenoscopy Endoscopist: Dayan Sandoval MD Indication: R/o Castillo's Anesthesia Provider: Dr Karl Mirza Anesthesia Type: MAC ?? EGD Procedure:?? The procedure, indications, preparation and potential complications were reviewed with the patient, who indicated understanding and gave written informed consent to proceed. market research analyst helped with the encounter. A physical exam was performed. The endoscope was introduced through the mouth, and advanced to the second part of duodenum. The mucosa was carefully examined on slow withdrawal of the endoscope. The patient tolerated the procedure well. There were no immediate c omplications.? ? EGD Findings:? * Esophagus:? Normal mucosa noted in the entire esophagus. The Z line was at 29 cm. Small hiatal hernia noted with the diaphragmatic pinch at 32 cm. A semi- lunar nonobstructing Schatzki's ring was also noted just above the GE junction. Cold forceps biopsies were taken from the GEJ to r/o Castillo's esophagus. * Stomach:?Pale atrophic appearing mucosa was noted in the body of the stomach. A 1.5 cm clean based ulcer was seen at the pylorus. The ulcer started oozing after agitation with water jet. Cold forceps biospsies were taken from the e dge of the ulcer. A resolution 360 clip was applied to the ulcer bed for hemostasis. Gastric biopsies were deferred as pt had just had biopsies done less than a year ago. * Duodenum:? Normal mucosa was noted in the whole of the examined duodenum. ? EGD Impressions:? * Nonobstructing Schatzki's ring * Hiatal hernia * Normal esophagus (biopsy) * Gastric ulcer (biopsy, endoclip) * Normal duodenum ?? Recommendations:?? * Follow biopsy results. Our office will call or send a letter with results within 7-10 days. * Continue PPI therapy. * Repeat EGD in 8-10 weeks to ensure ulcer healing estee given pt's age, and location of ulcer * Avoid NSAIDs. Above has been reviewed with the patient. Relevant educational hand outs were pr ovided at discharge.
[2022-06-29 14:19] VITALS: BP 98/46; PULSE 53; RESP 14; TEMP 36.2; O2SAT 92
[2022-06-29 14:35] VITALS: BP 129/69; PULSE 56; RESP 18; TEMP 36.8; O2SAT 96
== END 2022-06-29 14:38 | disposition home or self-care (01) ==
PROVIDERS: PCP Internal Medicine; Visit Provider Internal Medicine
PROC: 0DJ08ZZ Inspection of Upper Intestinal Tract, Via Natural or Artificial Opening Endoscopic (ICD-10-PCS; CPT 43235; principal; 2022-06-29 12:00)
DX: K21.9 Gastro-esophageal reflux disease without esophagitis (principal); K22.2 Esophageal obstruction; K44.9 Diaphragmatic hernia without obstruction or gangrene; K25.9 Gastric ulcer, unspecified as acute or chronic, without hemorrhage or perforation; K59.04 Chronic idiopathic constipation; I10 Essential (primary) hypertension; M79.7 Fibromyalgia; M81.0 Age-related osteoporosis without current pathological fracture; E11.9 Type 2 diabetes mellitus without complications; Z79.4 Long term (current) use of insulin; Z79.82 Long term (current) use of aspirin; Z79.899 Other long term (current) drug therapy; Z20.822 Contact with and (suspected) exposure to COVID-19
CPT/HCPCS: 43239; 0241U; 82947; 88305; 88342; J3010

== ENCOUNTER → 2022-07-13 11:39 | Outpatient (BNVA) | payer OTHER, SELFPAY | PROVIDERS: PCP Internal Medicine; Referring Provider Internal Medicine; Visit Provider Nurse Practitioner | DX: K59.04 Chronic idiopathic constipation (principal); K21.9 Gastro-esophageal reflux disease without esophagitis; K25.9 Gastric ulcer, unspecified as acute or chronic, without hemorrhage or perforation | CPT/HCPCS: 99212 ==

== ENCOUNTER → 2022-08-24 12:39 | Outpatient (BNVA) | payer OTHER, SELFPAY | PROVIDERS: PCP Internal Medicine; Visit Provider Nurse Practitioner | DX: K25.9 Gastric ulcer, unspecified as acute or chronic, without hemorrhage or perforation (principal); K21.9 Gastro-esophageal reflux disease without esophagitis; K59.04 Chronic idiopathic constipation | CPT/HCPCS: 99212 ==

== ENCOUNTER 2022-09-13 15:17 | Outpatient (REF) | payer OTHER, SELFPAY ==
--- NOTE | ~2022-09-13 | XR_ITS ---
EXAMINATION: XR FOOT, RIGHT CLINICAL INFORMATION: Pain. COMPARISON: None available. TECHNIQUE: AP, lateral, and oblique views of the right foot. FINDINGS: Mild arthritis at the 1st MTP joint. No fracture. Alignment is anatomic. Calcaneal spurs. XR/XR foot RT min 3V IMPRESSION: Mild arthritis at the 1st MTP joint. Calcaneal spurs.
== END 2022-09-13 15:18 | disposition home or self-care (01) ==
LOC: HO.XRAY 15:17
PROVIDERS: Visit Provider Internal Medicine
DX: M79.671 Pain in right foot (principal)
CPT/HCPCS: 73630

== ENCOUNTER 2022-11-09 10:36 | Day surgery (SDC) | payer OTHER, SELFPAY ==
[2022-11-07 14:05] VITALS: BMI 24.2
--- NOTE | 2022-11-08 09:32 | HO.ANESPROP2 ---
Documented by User: Eugenie Nagel NP 11/08/22 09:32 HPI - Anesthesia Eval Consult details Narrative: 72yo F for Upper Endoscopy PMFSH Active Problems Active Problems: All Active Problems (Updated 07/13/22 @ 12:03 by CLAYTON Keane) Gastric ulcer (Acute) Chronic idiopathic constipation (Acute) GERD (gastroesophageal reflux disease) (Acute) Weight loss (Acute) Past Medical History Medical History (Updated 07/13/22 @ 12:03 by CLAYTON Keane) Abnormal CT scan, colon Chronic low back pain Depression Diabetes mellitus Fibromyalgia Hypercholesterolemia Hypertension Insomnia Lumbar spondylitis Osteopenia Osteoporosis Family History Family History Family/Other Breast cancer Family history of problems with anesthesia: No Surgical History Surgical History (Updated 07/13/22 @ 11:49 by MARY Eubanks) H/O colonoscopy History of esophagogastroduodenoscopy (EGD) History of varicose vein ligation and stripping S/P trigger finger release History of Problems with Anesthesia: No Social History Social History Housing: Apartment Are you a primary summer child caregiver to a significant other at home: No Do you presently have visiting nurse or other home services: No Alcohol intake: never Patient Tobacco Use Status: Never used Tobacco e-Cigarette/Vaping Use: Never Used Advance Directives Date on File: 11/09/22 service: No Current occupation: retired Meds Allergies Allergy/AdvReac Type Severity Reaction Status Date / Time No Known Drug Allergies Allergy Unknown UNKNOWN Verified 08/24/22 12:53 Home Medications Medication Instructions Recorded Confirmed Last Taken Type acetaminophen 500 mg capsule 1,000 mg PO Q6H PRN Pain 02/09/21 11/09/22 Unknown History (Mapap (acetaminophen)) aspirin 81 mg tablet,delayed 81 mg PO DAILY 02/09/21 11/09/22 11/08/22 History release (Adult Low Dose Aspirin) calcium carbonate 500 mg calcium 1,000 mg PO DAILY 02/09/21 11/09/22 Unknown History (1,250 mg) tablet (Oyster Shell Calcium) mecobalamin (vitamin B12) 1,000 1,000 mcg PO DAILY 02/09/21 11/09/22 Unknown History mcg chewable tablet metformin 500 mg tablet,extended 1,000 mg PO BID 02/09/21 11/09/22 Unknown History release 24hr simvastatin 40 mg tablet 40 mg PO DAILY 02/09/21 11/09/22 Unknown History latanoprost 0.005 % eye drops 1 drp ophthalmic (eye) QPM 08/05/21 11/09/22 Unknown History insulin glargine 100 unit/mL (3 15 unit subcut QPM 02/10/22 11/09/22 Unknown History mL) subcutaneous pen (Lantus Solostar U-100 Insulin) lancets 33 gauge (OneTouch Delica #100 ea 02/10/22 02/10/22 Unknown History Plus Lancet) pen needle, diabetic 32 gauge x #50 ea 02/10/22 02/10/22 Unknown History (UltiCare Pen Needle) alcohol swabs (Alcohol Prep Pads) 0 pad topical QID 02/14/22 11/09/22 Unknown History citalopram 20 mg tablet 20 mg PO QAM 02/14/22 11/09/22 Unknown History fexofenadine 180 mg tablet 180 mg PO DAILY PRN allergies 02/14/22 11/09/22 Unknown History (Allergy Relief (fexofenadine)) fluticasone propionate 50 1 spray intranasal DAILY 02/14/22 11/09/22 Unknown History mcg/actuation nasal spray,suspension repaglinide 0.5 mg tablet 0.5 mg PO TID 02/14/22 11/09/22 Unknown History timolol maleate 0.5 % eye drops 1 drp ophthalmic (eye) QAM 02/14/22 11/09/22 Unknown History ferrous gluconate 324 mg (38 mg 324 mg PO QAM 07/13/22 11/09/22 Unknown History iron) tablet kqchnizb-qhs-hxziw acid 0.4 1 tab PO QAM 07/13/22 11/09/22 Unknown History mg-lycopene 300 mcg-lutein 250 mcg tablet (Cerovite Senior) blood sugar diagnostic (OneTouch #10 ea 08/24/22 Unknown History Ultra Test strips) Exam Exam Date and Time: November 08, 2022 0932 Height,Weight and Vital Signs: Height 4 ft 8 in Weight 48.988 kg Assessment and Plan Assessment Anesthesia Assessment: Chart Reviewed Final Anesthetic Review Family History of Problems with Anesthesia: No History of Problems with Anesthesia: No Documented by User: Nicole Pacheco MD 11/09/22 14:31 [facility] Past Medical History Medical History (Updated 07/13/22 @ 12:03 by CLAYTON Keane) Abnormal CT scan, colon Chronic low back pain Depression Diabetes mellitus Fibromyalgia Hypercholesterolemia Hypertension Insomnia Lumbar spondylitis Osteopenia Osteoporosis Family History Family History Family/Other Breast cancer Surgical History Surgical History (Updated 07/13/22 @ 11:49 by MARY Eubanks) H/O colonoscopy History of esophagogastroduodenoscopy (EGD) History of varicose vein ligation and stripping S/P trigger finger release Social History Social History Housing: Apartment Are you a primary summer child caregiver to a significant other at home: No Do you presently have visiting nurse or other home services: No Alcohol intake: never Patient Tobacco Use Status: Never used Tobacco e-Cigarette/Vaping Use: Never Used Advance Directives Date on File: 11/09/22 service: No Current occupation: retired Meds Allergies Allergy/AdvReac Type Severity Reaction Status Date / Time No Known Drug Allergies Allergy Unknown UNKNOWN Verified 08/24/22 12:53 Home Medications Medication Instructions Recorded Confirmed Last Taken Type acetaminophen 500 mg capsule 1,000 mg PO Q6H PRN Pain 02/09/21 11/09/22 Unknown History (Mapap (acetaminophen)) aspirin 81 mg tablet,delayed 81 mg PO DAILY 02/09/21 11/09/22 11/08/22 History release (Adult Low Dose Aspirin) calcium carbonate 500 mg calcium 1,000 mg PO DAILY 02/09/21 11/09/22 Unknown History (1,250 mg) tablet (Oyster Shell Calcium) mecobalamin (vitamin B12) 1,000 1,000 mcg PO DAILY 02/09/21 11/09/22 Unknown History mcg chewable tablet metformin 500 mg tablet,extended 1,000 mg PO BID 02/09/21 11/09/22 Unknown History release 24hr simvastatin 40 mg tablet 40 mg PO DAILY 02/09/21 11/09/22 Unknown History latanoprost 0.005 % eye drops 1 drp ophthalmic (eye) QPM 08/05/21 11/09/22 Unknown History insulin glargine 100 unit/mL (3 15 unit subcut QPM 02/10/22 11/09/22 Unknown History mL) subcutaneous pen (Lantus Solostar U-100 Insulin) lancets 33 gauge ([employer] TrustTouch Delica #100 ea 02/10/22 02/10/22 Unknown History Plus Lancet) pen needle, diabetic 32 gauge x #50 ea 02/10/22 02/10/22 Unknown History (UltiCare Pen Needle) alcohol swabs (Alcohol Prep Pads) 0 pad topical QID 02/14/22 11/09/22 Unknown History citalopram 20 mg tablet 20 mg PO QAM 02/14/22 11/09/22 Unknown History fexofenadine 180 mg tablet 180 mg PO DAILY PRN allergies 02/14/22 11/09/22 Unknown History (Allergy Relief (fexofenadine)) fluticasone propionate 50 1 spray intranasal DAILY 02/14/22 11/09/22 Unknown History mcg/actuation nasal spray,suspension repaglinide 0.5 mg tablet 0.5 mg PO TID 02/14/22 11/09/22 Unknown History timolol maleate 0.5 % eye drops 1 drp ophthalmic (eye) QAM 02/14/22 11/09/22 Unknown History ferrous gluconate 324 mg (38 mg 324 mg PO QAM 07/13/22 11/09/22 Unknown History iron) tablet iknsfnfx-ijx-nqzjh acid 0.4 1 tab PO QAM 07/13/22 11/09/22 Unknown History mg-lycopene 300 mcg-lutein 250 mcg tablet (Cerovite Senior) blood sugar diagnostic ([employer] TrustTouch #10 ea 08/24/22 Unknown History Ultra Test strips) Exam Airway Mallampati Class: I Neck ROM: Full Denture: Upper and Lower Loose/Missing/Broken Teeth: No Heart: rr Lungs: cta Assessment and Plan Final Anesthetic Review ASA Class: II Final Preanesthetic Review: No Changes in Pt Med Stat, Meds/Allgs Chart Reviewed, Consent Obtained/Reviewed and Anes Risks/Benef Reviewed Patient Risk: Low Procedure Risk: Low Anesthetic Plan Anesthetic Plan: MAC: and Regional Block Disposition: Standard PACU
[2022-11-09 10:58] VITALS: BP 109/58; PULSE 53; RESP 18; TEMP 36.6; O2SAT 99; BMI 24.2
[2022-11-09 11:03] VITALS: BMI 24.2
[2022-11-09 11:13] LABS: Glucose, Whole Blood 82 mg/dL (60-115)
[2022-11-09] MEDS: Lactated Ringers 1,000 ML 100 ML IVCONT (11:26)
--- NOTE | 2022-11-09 11:43 | P.OP_ITS ---
Operative Note Operative Note Date of Service: 11/09/22 Narrative: Procedure: Esophagogastroduodenoscopy Endoscopist: Dayan Sandoval MD Indication: Gastric ulcer Anesthesia Provider: Dr iNcole Pacheco Anesthesia Type: MAC EGD Procedure:?? The procedure, indications, preparation and potential complications were reviewed with the patient, who indicated understanding and gave written informed consent to proceed. emergency room orderly helped with the encounter. A physical exam was performed. The endoscope was introduced through the mouth, and advanced to the second part of duodenum. The mucosa was carefully examined on slow withdrawal of the endoscope. The patient tolerated the procedure well. There were no immediate complications.? ? EGD Findings:? * Esophagus:? Normal mucosa noted in the entire esophagus. The Z line was at 34 cm. Small hiatal hernia noted with the diaphragmatic pinch at 37 cm. * Stomach:?The previously noted ulcer at the pylorus had completely healed. Jumbo cold forceps biopsies were taken from the area of healed ulcer. * Duodenum:? Normal mucosa was noted in the whole of the examined duodenum.? EGD Impressions:? * Hiatal hernia * Normal esophagus * Healed gastric ulcer (biopsy) * Normal duodenum?? Recommendations:?? * Follow biopsy results. Our office will call or send a letter with results within 7-10 days. * Continue PPI therapy for 4 more weeks. * Avoid NSAIDs. Above has been reviewed with the patient. Relevant educational hand outs were provided at discharge.?
--- NOTE | 2022-11-09 11:43 | W.PM.OPN ---
Operative Note Operative Note Date of Service: 11/09/22 Narrative: Procedure: Esophagogastroduodenoscopy Endoscopist: Dayan Sandoval MD Indication: Gastric ulcer Anesthesia Provider: Dr Nicole Pacheco Anesthesia Type: MAC EGD Procedure:?? The procedure, indications, preparation and potential complications were reviewed with the patient, who indicated understanding and gave written informed consent to proceed. length control tester helped with the encounter. A physical exam was performed. The endoscope was introduced through the mouth, and advanced to the second part of duodenum. The mucosa was carefully examined on slow withdrawal of the endoscope. The patient tolerated the procedure well. There were no immediate complications.? ? EGD Findings:? Esophagus:? Normal mucosa noted in the entire esophagus. The Z line was at 34 cm. Small hiatal hernia noted with the diaphragmatic pinch at 37 cm. Stomach:?The previously noted ulcer at the pylorus had completely healed. Jumbo cold forceps biopsies were taken from the area of healed ulcer. Duodenum:? Normal mucosa was noted in the whole of the examined duodenum.? EGD Impressions:? Hiatal hernia Normal esophagus Healed gastric ulcer (biopsy) Normal duodenum?? Recommendations:?? Follow biopsy results. Our office will call or send a letter with results within 7-10 days. Continue PPI therapy for 4 more weeks. Avoid NSAIDs. Above has been reviewed with the patient. Relevant educational hand outs were provided at discharge.?
[2022-11-09 12:04] VITALS: BP 88/44; PULSE 54; RESP 16; TEMP 36.7; O2SAT 98
[2022-11-09 12:19] VITALS: BP 95/63; PULSE 59; RESP 16; O2SAT 97
[2022-11-09 12:34] VITALS: BP 135/68; PULSE 61; RESP 16; O2SAT 97
[2022-11-09 12:37] LABS: Glucose, Whole Blood 84 mg/dL (60-115)
[2022-11-09 12:37] LABS: Glucose, Whole Blood 65 mg/dL (60-115)
[2022-11-09 12:49] VITALS: BP 138/55; PULSE 60; RESP 16; TEMP 36.5; O2SAT 97
[2022-11-09 13:04] VITALS: BP 138/55; PULSE 61; RESP 16; TEMP 36.7; O2SAT 98
[2022-11-09 13:37] LABS: Glucose, Whole Blood 108 mg/dL (60-115)
== END 2022-11-09 13:42 | disposition home or self-care (01) ==
PROVIDERS: PCP Internal Medicine; Visit Provider Internal Medicine
PROC: 0DJ08ZZ Inspection of Upper Intestinal Tract, Via Natural or Artificial Opening Endoscopic (ICD-10-PCS; CPT 43235; principal; 2022-11-09 10:30)
DX: K21.9 Gastro-esophageal reflux disease without esophagitis (principal); K25.9 Gastric ulcer, unspecified as acute or chronic, without hemorrhage or perforation; K44.9 Diaphragmatic hernia without obstruction or gangrene; K59.04 Chronic idiopathic constipation; E11.9 Type 2 diabetes mellitus without complications; E78.00 Pure hypercholesterolemia, unspecified; I10 Essential (primary) hypertension; M79.7 Fibromyalgia; M81.0 Age-related osteoporosis without current pathological fracture; Z79.4 Long term (current) use of insulin; Z79.82 Long term (current) use of aspirin; Z79.899 Other long term (current) drug therapy
CPT/HCPCS: 43239; 82947; 88305; 88342

== ENCOUNTER → 2022-11-24 11:53 | Outpatient (BNVA) | payer OTHER, SELFPAY | PROVIDERS: PCP Internal Medicine; Visit Provider Nurse Practitioner | DX: K59.04 Chronic idiopathic constipation (principal); K21.9 Gastro-esophageal reflux disease without esophagitis; K25.9 Gastric ulcer, unspecified as acute or chronic, without hemorrhage or perforation; Z98.890 Other specified postprocedural states | CPT/HCPCS: 99212 ==

== ENCOUNTER 2023-02-06 12:57 | Outpatient (REF) | payer OTHER, SELFPAY ==
--- NOTE | ~2023-02-06 | MM_ITS ---
EXAMINATION: BONE DENSITOMETRY CLINICAL INDICATION: Osteoporosis. COMPARISON: Previous BD dated 02/01/2021 and baseline BD dated 11/22/2006. TECHNIQUE: Using a [employer] DXA System (software version: 13.1) manufactured by [employer], dual-energy x-ray absorptiometry was performed of the lumbar spine and left hip. The images are of good technical quality. Summary results are attached. FINDINGS: LEFT FEMUR, NECK: Current: BMD 0.732 g/cm2, Z-score 0.0, T-score -2.2, osteopenia. Prior: BMD 0.866 g/cm2. Baseline: BMD 0.852 g/cm2. LEFT FEMUR, TOTAL: Current: BMD 0.814 g/cm2, Z-score 0.6, T-score -1.5, osteopenia, 17.4% decrease from previous, 19.3% decrease from baseline (<5% change is not significant). Prior: BMD 0.985 g/cm2. Baseline: BMD 1.009 g/cm2. AP SPINE L1-L4: Current: BMD 0.998 g/cm2, Z-score 0.8, T-score -1.5, osteopenia, 5.6% increase from previous, 12.0% increase from baseline (<5% change is not significant). Prior: BMD 0.945 g/cm2. Baseline: BMD 0.891 g/cm2. IDENTIFIED RISK FACTORS: Early menopause, height loss, osteoporosis, secondary osteoporosis. HISTORY OF FRACTURE: None listed. MEDICATIONS: Calcium. MM/XR DEXA axial skeleton IMPRESSION: 1. DIAGNOSIS: Osteopenia based on the lowest T-score value of -2.2 in the lumbar spine applying World Health Organization criteria. 2. 10-YEAR FRACTURE RISK PREDICTION, FRAX: Major osteoporotic fracture (clinical spine, forearm, hip or shoulder) 7.5%. Hip fracture 2.0%. 3. Treatment Recommendations: NOF guidelines recommend consideration for treatment in postmenopausal women and men age 50 and older presenting with the following: -A hip or vertebral (clinical or morphometric) fracture. -T-score less than or equal to -2.5 at the femoral neck or spine after appropriate evaluation to exclude secondary causes. -Low bone mass at the hip or spine and a 10-year fracture probability by FRAX of greater than or equal to 3% for hip fracture or greater than or equal to 20% for major osteoporotic fracture based on the [place] adapted WHO algorithm. 4. Other Recommendations: All treatment decisions require clinical judgment and consideration of individual patient factors, including patient preferences, comorbidities, previous drug use, risk factors not captured in the FRAX model (e.g. frailty, falls, vitamin D deficiency, increased bone turnover, interval significant decline in bone density) and possible under or overestimation of fracture risk by FRAX. Additional medical evaluation for secondary cause of low bone mineral density may be appropriate. FUTURE SCAN RECOMMENDATION: People with diagnosed cases of osteoporosis or at high risk for fracture should have regular bone mineral density tests. For patients eligible for Medicare, routine testing is allowed once every 2 years. The testing frequency can be increased to one year for patients who have rapidly progressing disease, those who are receiving or discontinuing medical therapy to restore bone mass, or have additional risk factors.
== END 2023-02-06 12:58 | disposition home or self-care (01) ==
LOC: HO.MAMMO 12:57
PROVIDERS: Visit Provider Nurse Practitioner Family
DX: Z13.820 Encounter for screening for osteoporosis (principal); M81.0 Age-related osteoporosis without current pathological fracture; Z78.0 Asymptomatic menopausal state
CPT/HCPCS: 77080

== ENCOUNTER → 2023-02-06 13:00 | Outpatient (BNV) | payer OTHER, SELFPAY | PROVIDERS: Visit Provider Radiology Diagnostic Radiology | DX: M81.0 Age-related osteoporosis without current pathological fracture (principal) | CPT/HCPCS: 77080 ==

== ENCOUNTER 2023-03-23 15:49 | Outpatient (AMB) | payer OTHER, SELFPAY ==
[2023-03-23 16:03] VITALS: BP 118/62; PULSE 86; TEMP 36.7; O2SAT 94; BMI 19.1
--- NOTE | 2023-03-23 16:03 | A.OFFVIS_ITS ---
Intake Vital Signs 03/23/23 16:03 Height 5 ft 2 in Weight 104 lb 7.986 oz BMI 19.1 BP 118/62 Blood Pressure Location Rt brachial Position Sitting Pulse 86 Pulse Source Pulse Oximeter Temp 98.1 F Temp Source Skin Pulse Oximetry (%) 94 Intake Visit Reasons: osteoporosis Intake Note: Pt presents today for osteoporosis follow up. She was last seen by Felicia on 02/10/22.. Recent DEXA available 02/06/23. Today she has complaints of dry eyes and dry mouth and hand pain. Residential Framing Carpenter Required: Yes Residential Framing Carpenter Name: Dina Bullard Accompanied by: Niedelmira Bullard Allergies No Known Drug Allergies Allergy (Unknown, Verified 03/23/23 16:06) UNKNOWN Medication List - Last Reconciled 03/23/23 by Kole Olivo MD acetaminophen 1,000 mg PO Q8H PRN alcohol swabs (Alcohol Prep Pads) 0 pad topical QID aspirin (Adult Low Dose Aspirin) 81 mg PO DAILY blood sugar diagnostic (Spindle Researchuch Ultra Test strips) As directed calcium carbonate-vitamin D3 500 mg-10 mcg (400 unit) (Oyster Shell Calcium- Vitamin D3) 1 tab PO cyanocobalamin (vitamin B-12) 1,000 mcg PO QAM duloxetine 40 mg PO QAM empagliflozin-metformin 25-1,000 mg ER (Synjardy XR) 1 tab PO QAM eszopiclone 1 mg PO BEDTIME famotidine (Pepcid) 40 mg PO BEDTIME ferrous gluconate 324 mg PO QAM fexofenadine (Allergy Relief (fexofenadine)) 180 mg PO DAILY PRN fluticasone propionate 50 mcg/actuation 1 spray intranasal DAILY gabapentin 300 mg PO insulin glargine (Lantus Solostar U-100 Insulin) 15 units subcut QPM lancets (OneTouch Delica Plus Lancet) As directed latanoprost 0.005% 1 drp ophthalmic (eye) QPM mecobalamin (vitamin B12) 1,000 mcg PO DAILY oltpaugk-yqn-HV-lycopen-lutein 0.4 mg-300 mcg- 250 mcg (Cerovite Senior) 1 tab PO QAM omeprazole 40 mg PO DAILY 30 days pen needle, diabetic (UltiCare Pen Needle) As directed pilocarpine HCl 5 mg PO TID repaglinide 2 mg PO TID sennosides (senna) 17.2 mg (2 x 8.6 mg) PO BEDTIME 30 days simvastatin 40 mg PO DAILY timolol maleate 0.5% 1 drp ophthalmic (eye) QAM HPI HPI Comments History of Present Illness Details 72 yoF presents for follow-up of osteopholly landon. Last seen by Marlene Raygoza February 2022. Currently on a drug holiday from [facility]. ?Patient is doing well overall. Recently she has been complaining of dry eyes and dry mouth. She was prescribed pilocarpine by her dentist yesterday. Denies any history of falls. Takes vitamin-D and walks regularly. [facility] Medical History Osteoporosis Abnormal CT scan, colon Insomnia Depression Chronic low back pain Hypertension Fibromyalgia Hypercholesterolemia Lumbar spondylitis Diabetes mellitus Osteopenia Surgical History History of esophagogastroduodenoscopy (EGD) H/O colonoscopy S/P trigger finger release History of varicose vein ligation and stripping Family History Family/Other Breast cancer Social History Housing: Apartment Are you a primary care rep to a significant other at home: No Do you presently have visiting nurse or other home services: No Alcohol intake: never Patient Tobacco Use Status: Never used Tobacco e-Cigarette/Vaping Use: Never Used Advance Directives Date on File: 11/09/22 service: No Current occupation: retired Review of Systems Eyes Reports dry eyes ENT Reports dry mouth Physical Exam Vital Signs: Last Vital Signs Temp 98.1 F 03/23/23 16:03 Pulse 86 03/23/23 16:03 BP 118/62 03/23/23 16:03 Pulse Ox 94 03/23/23 16:03 BMI result Body Mass Index 19.1 Const General: cooperative, healthy appearing and comfortable Orientation/consciousness: patient oriented x3 Limitations: no limitations HEENT Other: Mildly dry oral mucosa Head: Yes normocephalic and Yes atraumatic Resp Effort & Inspection: normal respiratory effort and able to speak in complete sentences Auscultation: clear to auscultation bilaterally Cardio Rate: regular rate Rhythm: regular rhythm Skin General skin exam: no rashes or lesions noted Neuro General: patient oriented x3 Extrem Other: Osteoarthritic changes with prominent Heberden's and Caitlin's nodes. No active synovitis Results Reviewed Results Reviewed: Laboratory Tests A 02/01/2021 EXAMINATION: BONE DENSITOMETRY CLINICAL INDICATION: Screening for osteoporosis. COMPARISON: Previous BD dated 10/24/2018 and baseline BD dated 11/22/2006. TECHNIQUE: Using a [employer]knowledge DXA System (software version: 13.1) manufactured by [employer], dual-energy x-ray absorptiometry was performed of the lumbar spine and left hip. The images are of good technical quality. Summary results are attached. FINDINGS: AP SPINE L1-L4: Current: BMD 0.945 g/cm2, Z-score 0.2, T-score -2.0, osteopenia, 0.4% decrease from previous, 6.1% increase from baseline (<5% change is not significant). Prior: BMD 0.949 g/cm2. Baseline: BMD 0.891 g/cm2. LEFT FEMUR, NECK: Current: BMD 0.866 g/cm2, Z-score 0.8, T-score -1.2, osteopenia. Prior: BMD 0.816 g/cm2. Baseline: BMD 0.852 g/cm2. LEFT FEMUR, TOTAL: Current: BMD 0.985 g/cm2, Z-score 1.7, T-score -0.2, normal, 0.8% decrease from previous, 2.4% decrease from baseline (<5% change is not significant). Prior: BMD 0.993 g/cm2. Baseline: BMD 1.009 g/cm2. IDENTIFIED RISK FACTORS: Height loss, menopause, secondary osteoporosis, osteoporosis. HISTORY OF FRACTURE: None listed. MEDICATIONS: Calcium. MM/XR DEXA axial skeleton IMPRESSION: 1. DIAGNOSIS: Osteopenia based on the lowest T-score value of -2.0 in the lumbar spine applying World Health Organization criteria.? ? 2. 10-YEAR FRACTURE RISK PREDICTION, FRAX: Major osteoporotic fracture (clinical spine, forearm, hip or shoulder) 5.2%. Hip fracture 0.7%. EXAMINATION: BONE DENSITOMETRY CLINICAL INDICATION: Osteoporosis. COMPARISON: Previous BD dated 02/01/2021 and baseline BD dated 11/22/2006. TECHNIQUE: Using a [employer]knowledge DXA System (software version: 13.1) manufactured by [employer], dual-energy x-ray absorptiometry was performed of the lumbar spine and left hip. The images are of good technical quality. Summary results are attached. FINDINGS: LEFT FEMUR, NECK: Current: BMD 0.732 g/cm2, Z-score 0.0, T-score -2.2, osteopenia. Prior: BMD 0.866 g/cm2. Baseline: BMD 0.852 g/cm2. LEFT FEMUR, TOTAL: Current: BMD 0.814 g/cm2, Z-score 0.6, T-score -1.5, osteopenia, 17.4% decrease from previous, 19.3% decrease from baseline (<5% change is not significant). Prior: BMD 0.985 g/cm2. Baseline: BMD 1.009 g/cm2. AP SPINE L1-L4: Current: BMD 0.998 g/cm2, Z-score 0.8, T-score -1.5, osteopenia, 5.6% increase from previous, 12.0% increase from baseline (<5% change is not significant). Prior: BMD 0.945 g/cm2. Baseline: BMD 0.891 g/cm2. IDENTIFIED RISK FACTORS: Early menopause, height loss, osteoporosis, secondary osteoporosis. HISTORY OF FRACTURE: None listed. MEDICATIONS: Calcium. MM/XR DEXA axial skeleton IMPRESSION: 1. DIAGNOSIS: Osteopenia based on the lowest T-score value of -2.2 in the lumbar spine applying World Health Organization criteria. 2. 10-YEAR FRACTURE RISK PREDICTION, FRAX: Major osteoporotic fracture (clinical spine, forearm, hip or shoulder) 7.5%. Hip fracture 2.0%. 3. Treatment Recommendations: NOF guidelines recommend consideration for treatment in postmenopausal women and men age 50 and older presenting with the following: -A hip or vertebral (clinical or morphometric) fracture. -T-score less than or equal to -2.5 at the femoral neck or spine after appropriate evaluation to exclude secondary causes. -Low bone mass at the hip or spine and a 10-year fracture probability by FRAX of greater than or equal to 3% for hip fracture or greater than or equal to 20% for major osteoporotic fracture based on the [place] adapted WHO algorithm. 4. Other Recommendations: All treatment decisions require clinical judgment and consideration of individual patient factors, including patient preferences, comorbidities, previous drug use, risk factors not captured in the FRAX model (e.g. frailty, falls, vitamin D deficiency, increased bone turnover, interval significant decline in bone density) and possible under or overestimation of fracture risk by FRAX. Additional medical evaluation for secondary cause of low bone mineral density may be appropriate. FUTURE SCAN RECOMMENDATION: People with diagnosed cases of osteoporosis or at high risk for fracture should have regular bone mineral density tests. For patients eligible for Medicare, routine testing is allowed once every 2 years. The testing frequency can be increased to one year for patients who have rapidly progressing disease, those who are receiving or discontinuing medical therapy to restore bone mass, or have additional risk factors. Assessment & Plan Assessment & Plan (1) Osteoporosis: Comment: Previously on Fosamax-developed esophageal strictures so discontinued. Then started on Reclast from 2015-stop February 2021 for drug holiday. Patient currently on drug holiday Code(s): M81.0 - Age-related osteoporosis without current pathological fracture Qualifiers: Osteoporosis type: age-related Presence of current pathological fracture: without current pathological fracture Qualified Code(s): M81.0 - Age- related osteoporosis without current pathological fracture Plan: Was on Reclast from 2015 to February 2021. Her initial spine T-score was-2.5. Her recent DEXA scan shows an L-spine T-score of -1.5, her left femoral neck T- score however is -2.2 and has dropped significantly compared to 2020 (T-score - 1.2) Patient however remains in the osteopenic category. Her FRAX score remains low. She does not fulfill criteria for osteoporosis treatment. Repeat DEXA scan in the fall of 2022. Advised patient to implement measures to avoid any falls. Continue calcium and vitamin-D supplementation. Continue weight-bearing exercise. Plan I spent 25 minutes reviewing patient's chart, evaluating patient,counseling patient & niece and documenting in the chart Coding Level of Care Code Est Pt Level 4 (08889) Diagnoses Age-related osteoporosis without current pathological fracture M81.0 Osteoporosis type: age-related Presence of current pathological fracture: without current pathological fracture
== END 2023-03-23 16:34 | disposition home or self-care (01) ==
PROVIDERS: PCP Internal Medicine; Visit Provider Student in an Organized Health Care Education/Training Program
DX: M81.0 Age-related osteoporosis without current pathological fracture (principal)
CPT/HCPCS: 99214

== ENCOUNTER → 2023-03-23 15:49 | Outpatient (BNVA) | payer OTHER, SELFPAY | PROVIDERS: Visit Provider Student in an Organized Health Care Education/Training Program | DX: M81.0 Age-related osteoporosis without current pathological fracture (principal) | CPT/HCPCS: 99212 ==

== ENCOUNTER 2023-04-18 12:59 | Outpatient (AMB) | payer OTHER, SELFPAY ==
--- NOTE | 2023-04-18 13:03 | A.OFFVIS_ITS ---
Intake Vital Signs 04/18/23 13:08 Height 5 ft 2 in Weight 103 lb 8 oz BMI 18.9 BP 110/70 Blood Pressure Location Rt brachial Position Sitting Intake Visit Reasons: E-AUTOMATIC THREAD WINDER: Insomnia-LVM Intake Note: Patient presents for Insomnia. Patient states I've had issues with sleep for a while now, im still having issues I dont fall asleep until 12am and I'm always waking up in between. Allergies No Known Drug Allergies Allergy (Unknown, Verified 04/18/23 13:09) UNKNOWN HPI HPI Comments History of Present Illness Details 72 y/o female patient presents for new i n-person visit for sleep consultation. Pt reports she has difficulty falling asleepo and staying sleep. Pt reports she had PSG sleep study done more than 10 years, and the result was normal sleep, no sleep apnea. Pt tried remeron, trazodone, gabapentin and lunesta, however, nothing helped her to have good sleep. She goes to be 9 pm, takes about 1 hr to fall asleep, wakes up 6 am. She wakes up about 4 times at night, and uses bathroom, or drinking water. She has hard time to fall back to sleep. Sleep questionnaire: Have you ever been diagnosed with a sleep disorder? No. Have you ever had a sleep study in the past? Yes, PSG sleep study done about 10 years ago. Have you ever been treated for a sleep disorder? No. Do you take medications for a sleep disorder? Lunesta 1 mg, but it make her stay awake. She tried remeron, trazodone and gabapentin. Do you snore? No. Do you wake up gasping at night? No. Do you have episodes of apneas? No. If yes, are they witnessed? No. Do you have episodes of nocturnal chest pain or dyspnea? No. Do you have difficulty initiating sleep? Yes. Do you have difficulty maintaining sleep? Yes. Do you wake up tired? Yes. Do you have headaches upon awakening? No. Do you wake up with dry mouth or throat? Yes. Do you have GERD? Yes. Do you have nocturia? Yes. Do you have nocturnal leg cramps? Yes. Do you have symptoms of restless legs? No. Do you act out your dreams? No. Sleep hygiene questionnaire: What is your usual sleep routine? Usual bedtime is at 9 pm but takes about an hour to fall asleep ; Usual wake up time is at 6 am. She wakes up about 3 times in the middle of night. Do you take naps? No. Is your sleep environment cool, dark, and quiet? Yes. Do you exercise? Yes, walking her dog. Do you take caffeine or other stimulants? Coffee in the morning. sometimes in the evening. Do you use electronics in bed? Yes, watches TV until 9 pm. What is your work schedule? N/A Hypersomnolence questionnaire: Do you have daytime tiredness or fatigue? Yes. Do you easily fall asleep when inactive? No. Have you ever had episodes of sudden weakness? No. Have you ever had episodes of sudden weakness associated with strong emotions? No. [facility] Medical History (Updated 04/18/23 @ 16:46 by Sanford Lazo CNP) Insomnia Osteoporosis Abnormal CT scan, colon Depression Chronic low back pain Hypertension Fibromyalgia Hypercholesterolemia Lumbar spondylitis Diabetes mellitus Osteopenia Surgical History History of esophagogastroduodenoscopy (EGD) H/O colonoscopy S/P trigger finger release History of varicose vein ligation and stripping Family History Family/Other Breast cancer Social History Housing: Apartment Are you a primary caregivers non medical to a significant other at home: No Do you presently have visiting nurse or other home services: No Alcohol intake: never Patient Tobacco Use Status: Never used Tobacco e-Cigarette/Vaping Use: Never Used Advance Directives Date on File: 11/09/22 service: No Current occupation: retired Review of Systems Const All systems reviewed & are unremarkable except as noted in HPI and below ENT Reports Normal hearing present Neuro Reports Normal hearing present Physical Exam Vital Signs: Last Vital Signs BP 110/70 04/18/23 13:08 BMI result Body Mass Index 18.9 Const General: cooperative Nutritional Appearance: average body habitus Orientation/consciousness: patient oriented x3 Limitations: language barrier Neck Neck: Yes full ROM and Yes supple Resp Effort & Inspection: normal respiratory effort and able to speak in complete sentences Neuro General: patient oriented x3, gait normal and moves all extremities Cranial nerves: Yes Bilaterally intact EOM present, Yes Normal facial strength present, Yes Midline tongue present, Yes Symmetric palate elevation present, Yes Normal hearing present, Yes Ability to bilaterally rotate head present and Yes Ability to bilaterally elevate shoulders present Cognition (Neuro): normal cognition Motor exam (neuro): 5/5 motor strength present throughout, Pronator motor function not present and no tremor noted Psych Appearance: grossly normal Mental Status: mental status grossly normal Speech and movement: Normal speech and movement present Affect: normal affect Attitude: cooperative Assessment & Plan Assessment & Plan (1) Sleeping difficulties: Code(s): G47.9 - Sleep disorder, unspecified (2) Insomnia: Code(s): G47.00 - Insomnia, unspecified Plan Pt is advised to undergo in lab sleep study to assess for sleep apnea, sleep related movement disorder and sleep efficiency. Will f/u with pt after study to discuss results and appropriate treatment options. Sleep hygiene education provided. Advised patient to take gabapentin 300 mg qHS along with magensium 400 mg qHS. Pt to call with any worsening concerns or questions. Orders: Orders RT PSG in-lab sleep study 04/18/23 G47.00 - Insomnia, unspecified, G47.9 - Sleep disorder, unspecified Coding Level of Care Code New Pt Level 3 (85124) Diagnoses Sleeping difficulties G47.9 Insomnia G47.00
[2023-04-18 13:08] VITALS: BP 110/70; BMI 18.9
== END 2023-04-18 13:57 | disposition home or self-care (01) ==
PROVIDERS: PCP Internal Medicine; Visit Provider Nurse Practitioner Family
DX: G47.9 Sleep disorder, unspecified (principal); G47.00 Insomnia, unspecified
CPT/HCPCS: 99203

== ENCOUNTER → 2023-04-18 12:59 | Outpatient (BNVA) | payer OTHER, SELFPAY | PROVIDERS: PCP Internal Medicine; Visit Provider Nurse Practitioner Family | DX: G47.9 Sleep disorder, unspecified (principal); G47.00 Insomnia, unspecified | CPT/HCPCS: 99202 ==

== ENCOUNTER 2023-05-11 09:34 | Day surgery (SDC) | payer OTHER, SELFPAY ==
[2023-05-11] VITALS (9 sets, daily range): BP systolic 104–138; BP diastolic 54–80; PULSE 64–94; RESP 16–24; TEMP 36.6–37.6; O2SAT 96–100; BMI 18.9
--- NOTE | 2023-05-11 10:01 | ECG_ITS ---
Test Reason : cp Blood Pressure : / mmHG Vent. Rate : 065 BPM Atrial Rate : 065 BPM P-R Int : 130 ms QRS Dur : 072 ms QT Int : 410 ms P-R-T Axes : 069 044 065 degrees QTc Int : 426 ms Normal sinus rhythm Normal ECG When compared with ECG of 04-OCT-2011 15:49, No significant change was found Referred By: Generic ED Physician Electronically Signed By:NICK JIMENEZ
--- NOTE | 2023-05-11 10:12 | PC.NURSE ---
Pt reports hx of esophageal surgery (one at this hospital and one at [facility]); feels as if she is choking . She has consumed food and drink with the feeling of something being stuck persisting. Pt states fluids come back up . Pt states she ate plantain yesterday at 4pm; has not eaten since then. Pt states last time esophagus was stretched was years ago ; pt has not seen a doctor since. Provider at bedside: plan for preop. (push any remaining food through; possible stretch of esophagus).
[2023-05-11 10:13] LABS: MANUAL DIFF FLAG NO
[2023-05-11 10:15] LABS: Basophils Percent Auto 0.2 % (0-2); Eosinophils Absolute Auto 0.5 X10*3/uL (0.0-0.4); Eosinophils Percent Auto 8.9 % (0-4); Hematocrit 44.9 % (37.0-47.0); Hemoglobin 14.6 g/dl (12.0-16.0); Imm Gran Abs Auto 0.01 X10*3/uL (0.00-0.03); Imm Gran Pct Auto 0.2 % (0.0-0.4); Lymphocytes Absolute Auto 1.7 X10*3/uL (1.2-4.9); Lymphocytes Percent Auto 28.3 % (20-40); Mean Corpuscular HGB Conc 32.5 g/dl (31.0-35.0); Mean Corpuscular Hemoglobin 31.4 pg (27.0-33.0); Mean Corpuscular Volume 96.6 fL (80.0-98.0); Mean Platelet Volume 9.2 fL (9.4-12.3); Monocytes Absolute Auto 0.6 X10*3/uL (0.1-1.2); Monocytes Percent Auto 9.3 % (2-11); Neutrophils Absolute Auto 3.2 x10*3/uL (2.0-8.3); Neutrophils Percent Auto 53.1 % (45-73); Platelet Count 249 X10*3/uL (160-400); Red Blood Count 4.65 X10*6/uL (4.20-5.50); Red Cell Distribution Width 12.5 % (11.0-16.0); White Blood Count 5.9 X10*3/uL (4.8-10.8)
--- NOTE | 2023-05-11 10:25 | ED.CHESTPAIN ---
HPI - Chest Pain General Chief Complaint: Chest Pain Stated Complaint: nausea, vomiting Time Seen by Provider: 05/11/23 10:07 Source: patient Mode of arrival: ambulatory Limitations: language barrier History of Present Illness HPI narrative: Unable to swallow since 4pm yesterday, she had a boiled banana and has not been able to swallow since then. spitting saliva and liquids Onset (ago): hour(s) Timing of current episode: constant Related Data Home Medications Medication Instructions Recorded Confirmed aspirin 81 mg tablet,delayed 81 mg PO DAILY 02/09/21 11/09/22 release (Adult Low Dose Aspirin) mecobalamin (vitamin B12) 1,000 1,000 mcg PO DAILY 02/09/21 11/09/22 mcg chewable tablet simvastatin 40 mg tablet 40 mg PO DAILY 02/09/21 11/09/22 latanoprost 0.005 % eye drops 1 drp ophthalmic (eye) QPM 08/05/21 11/09/22 insulin glargine 100 unit/mL (3 15 unit subcut QPM 02/10/22 11/09/22 mL) subcutaneous pen (Lantus Solostar U-100 Insulin) lancets 33 gauge ([employer] Delica #100 ea 02/10/22 02/10/22 Plus Lancet) pen needle, diabetic 32 gauge x #50 ea 02/10/22 02/10/22 5/32 (UltiCare Pen Needle) alcohol swabs (Alcohol Prep Pads) 0 pad topical QID 02/14/22 11/09/22 fexofenadine 180 mg tablet 180 mg PO DAILY PRN allergies 02/14/22 11/09/22 (Allergy Relief (fexofenadine)) fluticasone propionate 50 1 spray intranasal DAILY 02/14/22 11/09/22 mcg/actuation nasal spray,suspension timolol maleate 0.5 % eye drops 1 drp ophthalmic (eye) QAM 02/14/22 11/09/22 ferrous gluconate 324 mg (38 mg 324 mg PO QAM 07/13/22 11/09/22 iron) tablet upvlpiqk-gvk-pnnri acid 0.4 1 tab PO QAM 07/13/22 11/09/22 mg-lycopene 300 mcg-lutein 250 mcg tablet (Cerovite Senior) blood sugar diagnostic ([employer] #10 ea 08/24/22 Ultra Test strips) acetaminophen 500 mg tablet 1,000 mg PO Q8H PRN 03/23/23 calcium carbonate 500 mg-vitamin 1 tab PO 03/23/23 D3 10 mcg (400 unit) tablet (Oyster Shell Calcium-Vitamin D3) cyanocobalamin (vitamin B-12) 1,000 mcg PO QAM 03/23/23 1,000 mcg tablet duloxetine 20 mg capsule,delayed 40 mg PO QAM 03/23/23 release empagliflozin 25 mg-metformin ER 1 tab PO QAM 03/23/23 1,000 mg tablet,extended release 24hr (Synjardy XR) eszopiclone 1 mg tablet 1 mg PO BEDTIME 03/23/23 gabapentin 300 mg capsule 300 mg PO 03/23/23 pilocarpine HCl 5 mg tablet 5 mg PO TID 03/23/23 repaglinide 2 mg tablet 2 mg PO TID 03/23/23 magnesium 200 mg tablet 200 mg PO DAILY 04/18/23 Previous Rx's Medication Instructions Recorded famotidine 40 mg tablet (Pepcid) 40 mg PO BEDTIME #30 tabs 08/24/22 omeprazole 40 mg capsule,delayed 40 mg PO QAM #30 caps 04/09/23 release sennosides 8.6 mg tablet (senna) 17.2 mg (2 x 8.6 mg) PO BEDTIME 04/09/23 for constipation #60 tabs Allergies Allergy/AdvReac Type Severity Reaction Status Date / Time No Known Drug Allergies Allergy Unknown UNKNOWN Verified 04/18/23 13:09 Review of Systems Review of Systems: Yes all other systems are reviewed and are negative Neurologic: Denies Sensory deficit (Neuro) [facility] Past Medical History Medical History Insomnia Osteoporosis Abnormal CT scan, colon Depression Chronic low back pain Hypertension Fibromyalgia Hypercholesterolemia Lumbar spondylitis Diabetes mellitus Osteopenia Surgical History History of esophagogastroduodenoscopy (EGD) H/O colonoscopy S/P trigger finger release History of varicose vein ligation and stripping Family History Family History Family/Other Breast cancer Social History Social History Housing: Apartment Are you a primary personal care attendant to a significant other at home: No Do you presently have visiting nurse or other home services: No Alcohol intake: never Patient Tobacco Use Status: Never used Tobacco Smoked in Last 30 Days: No e-Cigarette/Vaping Use: Never Used Use of substances other than those prescribed or required for medical reasons: No Advance Directives: Yes Advance Directives Information Provided: Yes Advance Directives on File: No Advance Directives Date on File: 11/09/22 service: No Current occupation: retired Physical Exam Vital Signs: Vital Signs: Last Vital Signs Temp 99.6 F 05/11/23 11:18 Pulse 71 05/11/23 11:18 Resp 16 05/11/23 11:18 BP 123/54 L 05/11/23 11:18 Pulse Ox 98 05/11/23 11:18 O2 Del Method Room Air 05/11/23 11:18 BMI result Body Mass Index 18.9 Const: Other: thin female spitting into a bag Nutritional Appearance: average body habitus Orientation/consciousness: oriented to person and patient oriented x3 Limitations: no limitations HEENT: Head: Yes normal to inspection Ears: external ears normal General nose exam: Normal external nose present Mouth: Normal oral and palatal mucosa present and oropharynx normal Throat: Yes posterior oropharynx normal Eyes: General: appearance normal, both eyes and all related structures Neck: Other: supple Neck: Yes normal visual inspection Chest: Chest palpation & inspection: normal inspection of the chest Resp: Auscultation: clear to auscultation bilaterally Cardio: Jugular venous distension: no JVD Rate: regular rate Rhythm: regular rhythm Heart sounds: S1 normal heart sound present and S2 normal heart sound present GI: Inspection: Yes normal to inspection Palpation (GI): Soft to palpation, nontender and No hepatosplenomegaly present Auscultation: normal bowel sounds : General: Yes no CVA tenderness Back/Spine/Pelvis: Back: no CVA tenderness Skin: General skin exam: no rashes or lesions noted Neuro: General: oriented to person and patient oriented x3 Cranial nerves: Yes CN's II-XII intact bilaterally Motor exam (neuro): 5/5 motor strength present throughout Sensory Exam: No Sensory deficit (Neuro) Extrem: General: Yes normal to inspection Psych: Appearance: grossly normal Course Reevaluation(s) Reevaluation #1: Discussed with Dr. Garcia, she will scope her at 2pm Time: 11:25 Medications Administered Discontinued Medications Generic Name Dose Route Start Last Admin Trade Name Jose PRN Reason Stop Dose Admin Nitroglycerin 0.4 mg 05/11/23 11:17 05/11/23 11:23 Nitroglycerin 0.4 Mg Tab.Subl SUBLINGUAL 05/11/23 11:18 0.4 mg ONCE ONE Administration Medical Decision Making Differential Diagnosis Differential Diagnoses: The differential diagnosis associated with the presentation includes (esophageal obstruction, food bolus, esophageal stricture, esophageal mass all considered) Admission/Observation Consideration of admission/observation: Escalation of care including admission/observation considered upon arrival patient was considered for admission Consult Healthcare Provider Management of the patient was discussed with: Commercial Loan Specialist (Dr. Garcia GI) Lab Data MDM Lab Attestation statement: I reviewed the patient's lab results. 05/11/23 10:09 05/11/23 10:09 Labs: Lab Results 05/11/23 Range/Units 10:09 WBC 5.9 (4.8-10.8) X10*3/uL RBC 4.65 (4.20-5.50) X10*6/uL Hgb 14.6 D (12.0-16.0) g/dl Hct 44.9 D (37.0-47.0) % MCV 96.6 (80.0-98.0) fL MCH 31.4 (27.0-33.0) pg MCHC 32.5 (31.0-35.0) g/dl RDW 12.5 (11.0-16.0) % Plt Count 249 (160-400) X10*3/uL MPV 9.2 L (9.4-12.3) fL Immature Gran % (Auto) 0.2 (0.0-0.4) % Neut % (Auto) 53.1 (45-73) % Lymph % (Auto) 28.3 (20-40) % [place] % (Auto) 9.3 (2-11) % Eos % (Auto) 8.9 H (0-4) % Baso % (Auto) 0.2 (0-2) % Lymph # (Auto) 1.7 (1.2-4.9) X10*3/uL [place] # (Auto) 0.6 (0.1-1.2) X10*3/uL Eos # (Auto) 0.5 H (0.0-0.4) X10*3/uL Baso # (Auto) 0.0 (0.0-0.2) X10*3/uL Abs Immat Gran (auto) 0.01 (0.00-0.03) X10*3/uL Absolute Neuts (auto) 3.2 (2.0-8.3) x10*3/uL Absolute Nucleated RBC 0.000 (0.0-0.012) X10*3/uL Nucleated RBC % (auto) 0.0 (0.0-0.2) /100WBC Sodium 142 (135-145) mmol/L Potassium 4.6 (3.3-5.1) mmol/L Chloride 106 (96-108) mmol/L Carbon Dioxide 29 (22-29) mmol/L Anion Gap 12 (12-20) BUN 23 H (9-16) mg/dL Creatinine 0.88 (0.5-1.4) mg/dL Estim Creat Clear Calc 40.7 Estimated GFR > 60 Random Glucose 121 H (60-115) mg/dL Calcium 9.5 (8.4-10.2) mg/dL Troponin I High Sens < 2.7 (<3.5-17.0) ng/L Independent Interpretation I performed an independent interpretation of an: EKG (sinus [address] or twave changes) Independent Historian Clinical information obtained from an independent historian. History obtained from or confirmed by: Other (son) External Record Review External record reviewed: Outpatient record Tests considered The following testing was considered but not selected: CT of chest considered but patient to got to OR for scope Chronic Conditions Patient?s care impacted by: Other (esophageal stricture) Discharge Plan Discharge Clinical Impression: Acute esophageal obstruction Patient Disposition: Xfer Other Transfer Details: short stay Prescriptions: No Action omeprazole 40 mg capsule,delayed release(DR/EC) 40 mg PO QAM Qty: 30 6RF sennosides [senna] 8.6 mg tablet 17.2 mg PO BEDTIME Qty: 60 6RF simvastatin 40 mg tablet 40 mg PO DAILY aspirin [Adult Low Dose Aspirin] 81 mg tablet,delayed release (DR/EC) 81 mg PO DAILY mecobalamin (vitamin B12) 1,000 mcg tablet,chewable 1,000 mcg PO DAILY (DME) lancets [OneTouch Delica Plus Lancet] 33 gauge misc See Rx Instructions .ROUTE TID Qty: 100 Rx Instructions: As directed (DME) pen needle, diabetic [UltiCare Pen Needle] 32 gauge x 5/32 needle See Rx Instructions .ROUTE DAILY Qty: 50 Rx Instructions: As directed insulin glargine [Lantus Solostar U-100 Insulin] 100 unit/mL (3 mL) insulin pen 15 unit subcut QPM latanoprost 0.005 % drops 1 drp ophthalmic (eye) QPM timolol maleate 0.5 % drops 1 drp ophthalmic (eye) QAM alcohol swabs [Alcohol Prep Pads] Pads, Medicated 0 pad topical QID fexofenadine [Allergy Relief (fexofenadine)] 180 mg tablet 180 mg PO DAILY PRN (Reason: allergies) fluticasone propionate 50 mcg/actuation spray,suspension 1 spray intranasal DAILY Cerovite Senior 0.4 mg-300 mcg- 250 mcg tablet 1 tab PO QAM ferrous gluconate 324 mg (38 mg iron) tablet 324 mg PO QAM (DME) OneTouch Ultra Test Strip See Rx Instructions .ROUTE TID Qty: 10 Rx Instructions: As directed famotidine [Pepcid] 40 mg tablet 40 mg PO BEDTIME Qty: 30 6RF magnesium 200 mg tablet 200 mg PO DAILY pilocarpine HCl 5 mg tablet 5 mg PO TID Synjardy XR 25-1,000 mg tablet, IR - ER, biphasic 24hr 1 tab PO QAM duloxetine 20 mg capsule,delayed release(DR/EC) 40 mg PO QAM cyanocobalamin (vitamin B-12) 1,000 mcg tablet 1,000 mcg PO QAM gabapentin 300 mg capsule 300 mg PO repaglinide 2 mg tablet 2 mg PO TID calcium carbonate-vitamin D3 [Oyster Shell Calcium-Vit D3] 500 mg-10 mcg (400 unit) tablet 1 tab PO eszopiclone 1 mg tablet 1 mg PO BEDTIME acetaminophen 500 mg tablet 1,000 mg PO Q8H PRN
[2023-05-11 10:29] LABS: Anion Gap 12 (12-20); Blood Urea Nitrogen 23 mg/dL (9-16); Calcium 9.5 mg/dL (8.4-10.2); Carbon Dioxide 29 mmol/L (22-29); Chloride 106 mmol/L (96-108); Creatinine Clr Calc Pharmacy 40.7; Estimated Glomerular Filt Rate > 60; Glucose Random 121 mg/dL (60-115); Potassium 4.6 mmol/L (3.3-5.1); Sodium 142 mmol/L (135-145)
[2023-05-11 10:43] LABS: Troponin-I High Sensitivity < 2.7 ng/L (<3.5-17.0)
[2023-05-11] MEDS: Nitroglycerin 0.4 MG TAB.SUBL SUBLINGUAL (11:23)
--- NOTE | 2023-05-11 11:42 | P.CNGI_ITS ---
History of Present Illness Data of Consult Service Date: 05/11/23 Requesting physician: Damir Triana Primary Care Provider: Belinda Lawson MD [facility] Reason for consult: Dysphagia, food impaction 72 year old English speaking female with hypertension, fibromyalgia and DM and a known hx of Schatzki's ring. Pt ate a boiled banana yesterday at 4 pm and has been unable to swallow since. She has been having difficulty managing her secretions. Pt reports a hx of dysphagia and past EGDs for food impaction (in 2012) Pt has a hx of Schatzki's ring noted on EGD in Jun, 2022 Pt had an EGD in 11/[address] Sandoval: EGD Impressions:? * Hiatal hernia * Normal esophagus * Healed gastric ulcer (biopsy) * Normal duodenum?? * Recommendations:?? * Follow biopsy results. Our office will call or send a letter with results within 7-10 days. * Continue PPI therapy for 4 more weeks. * Avoid NSAIDs. Review of Systems 2 Review of Systems: Yes all other systems are reviewed and are negative Neurologic: Denies Sensory deficit (Neuro) PMF[facility] Past Medical History Medical History Insomnia Osteoporosis Abnormal CT scan, colon Depression Chronic low back pain Hypertension Fibromyalgia Hypercholesterolemia Lumbar spondylitis Diabetes mellitus Osteopenia Family History Family History Family/Other Breast cancer Surgical History Surgical History History of esophagogastroduodenoscopy (EGD) H/O colonoscopy S/P trigger finger release History of varicose vein ligation and stripping Social History Social History Housing: Apartment Are you a primary childcare director to a significant other at home: No Do you presently have visiting nurse or other home services: No Alcohol intake: never Patient Tobacco Use Status: Never used Tobacco Smoked in Last 30 Days: No e-Cigarette/Vaping Use: Never Used Use of substances other than those prescribed or required for medical reasons: No Are you DNR?: No Advance Directives: Yes Advance Directives Information Provided: Yes Advance Directives on File: No Advance Directives Date on File: 11/09/22 Nutrition Risks: No Nutritional Risk service: No Current occupation: retired Meds Allergies Allergy/AdvReac Type Severity Reaction Status Date / Time No Known Drug Allergies Allergy Unknown UNKNOWN Verified 05/11/23 14:34 Home Medications Medication Instructions Recorded Confirmed Last Taken Type aspirin 81 mg tablet,delayed 81 mg PO DAILY 02/09/21 11/09/22 11/08/22 History release (Adult Low Dose Aspirin) mecobalamin (vitamin B12) 1,000 1,000 mcg PO DAILY 02/09/21 11/09/22 Unknown History mcg chewable tablet simvastatin 40 mg tablet 40 mg PO DAILY 02/09/21 11/09/22 Unknown History latanoprost 0.005 % eye drops 1 drp ophthalmic (eye) QPM 08/05/21 11/09/22 Unknown History insulin glargine 100 unit/mL (3 15 unit subcut QPM 02/10/22 11/09/22 Unknown History mL) subcutaneous pen (Lantus Solostar U-100 Insulin) lancets 33 gauge ([employer] Delica #100 ea 02/10/22 02/10/22 Unknown History Plus Lancet) pen needle, diabetic 32 gauge x #50 ea 02/10/22 02/10/22 Unknown History 5/32 (UltiCare Pen Needle) alcohol swabs (Alcohol Prep Pads) 0 pad topical QID 02/14/22 11/09/22 Unknown History fexofenadine 180 mg tablet 180 mg PO DAILY PRN allergies 02/14/22 11/09/22 Unknown History (Allergy Relief (fexofenadine)) fluticasone propionate 50 1 spray intranasal DAILY 02/14/22 11/09/22 Unknown History mcg/actuation nasal spray,suspension timolol maleate 0.5 % eye drops 1 drp ophthalmic (eye) QAM 02/14/22 11/09/22 Unknown History ferrous gluconate 324 mg (38 mg 324 mg PO QAM 07/13/22 11/09/22 Unknown History iron) tablet omdiygwu-zth-qgvyz acid 0.4 1 tab PO QAM 07/13/22 11/09/22 Unknown History mg-lycopene 300 mcg-lutein 250 mcg tablet (Cerovite Senior) blood sugar diagnostic ([employer]Touch #10 ea 08/24/22 Unknown History Ultra Test strips) acetaminophen 500 mg tablet 1,000 mg PO Q8H PRN 03/23/23 Unknown History calcium carbonate 500 mg-vitamin 1 tab PO 03/23/23 Unknown History D3 10 mcg (400 unit) tablet (Oyster Shell Calcium-Vitamin D3) cyanocobalamin (vitamin B-12) 1,000 mcg PO QAM 03/23/23 Unknown History 1,000 mcg tablet duloxetine 20 mg capsule,delayed 40 mg PO QAM 03/23/23 Unknown History release empagliflozin 25 mg-metformin ER 1 tab PO QAM 03/23/23 Unknown History 1,000 mg tablet,extended release 24hr (Synjardy XR) eszopiclone 1 mg tablet 1 mg PO BEDTIME 03/23/23 Unknown History gabapentin 300 mg capsule 300 mg PO 03/23/23 Unknown History pilocarpine HCl 5 mg tablet 5 mg PO TID 03/23/23 Unknown History repaglinide 2 mg tablet 2 mg PO TID 03/23/23 Unknown History magnesium 200 mg tablet 200 mg PO DAILY 04/18/23 Unknown History Physical Exam 2 Vital Signs: Vital Signs: Last Vital Signs Temp 99.6 F 05/11/23 11:18 Pulse 71 05/11/23 11:18 Resp 16 05/11/23 11:18 BP 123/54 L 05/11/23 11:18 Pulse Ox 98 05/11/23 11:18 O2 Del Method Room Air 05/11/23 11:18 BMI result Body Mass Index 18.9 Const: Other: thin female spitting into a bag Nutritional Appearance: underweight Orientation/consciousness: oriented to person and patient oriented x3 Limitations: language barrier HEENT: Head: Yes normal to inspection Ears: external ears normal General nose exam: Normal external nose present Mouth: Normal oral and palatal mucosa present and oropharynx normal Throat: Yes posterior oropharynx normal Eyes: General: appearance normal, both eyes and all related structures Neck: Other: supple Neck: Yes normal visual inspection Chest: Chest palpation & inspection: normal inspection of the chest Resp: Auscultation: clear to auscultation bilaterally Cardio: Jugular venous distension: no JVD Rate: regular rate Rhythm: r egular rhythm Heart sounds: S1 normal heart sound present and S2 normal heart sound present GI: Inspection: Yes normal to inspection Palpation (GI): Soft to palpation, nontender and No hepatosplenomegaly present Auscultation: normal bowel sounds : General: Yes no CVA tenderness Back/Spine/Pelvis: Back: no CVA tenderness Skin: General skin exam: no rashes or lesions noted Neuro: General: oriented to person and patient oriented x3 Cranial nerves: Yes CN's II-XII intact bilaterally Motor exam (neuro): 5/5 motor strength present throughout Sensory Exam: No Sensory deficit (Neuro) Extrem: General: Yes normal to inspection Psych: Appearance: grossly normal Results Labs 05/11/23 10:09 05/11/23 10:09 Labs: Short CBC 05/11/23 Range/Units 10:09 WBC 5.9 (4.8-10.8) X10*3/uL Hgb 14.6 D (12.0-16.0) g/dl Hct 44.9 D (37.0-47.0) % Plt Count 249 (160-400) X10*3/uL BMP 05/11/23 10:09 Sodium 142 Potassium 4.6 Chloride 106 Carbon Dioxide 29 BUN 23 H Creatinine 0.88 Calcium 9.5 Assessment and Plan (1) Acute esophageal obstruction: Status: Acute (2) GERD (gastroesophageal reflux disease): Status: Acute Plan 72 year old English speaking female with hypertension, fibromyalgia and DM and a known hx of Schatzki's ring. Pt ate a boiled banana yesterday at 4 pm and has been unable to swallow since. She reported difficulty managing her secretions on arrival to the ER. Pt reports a hx of dysphagia and past EGDs for food impaction (in [address] Rodas) Pt has a hx of Schatzki's ring noted on EGD in Jun, 2022 Food impaction is likely related to recurrent Schatzki's ring, esophageal stricture or motility disorder. RECOMMENDATIONS: 1. Dissolve a Nitroglycerine tab in 10 cc of water and have the patient sip it to see if food bolus will migrate into the stomach. 2. Proceed with urgent EGD today if pt continues to have esophageal obstruction Procedures Date of Service Date of Service: 05/11/23
--- NOTE | 2023-05-11 13:17 | PC.NURSE ---
Report given to short stay RN.
--- NOTE | 2023-05-11 14:17 | P.CONAN_ITS ---
[facility] Active Problems Active Problems: All Active Problems (Updated 05/11/23 @ 11:28 by Damir Triana MD) Acute esophageal obstruction (Acute) Sleeping difficulties (Acute) Insomnia (Acute) Osteoporosis (Acute) Gastric ulcer (Acute) Chronic idiopathic constipation (Acute) GERD (gastroesophageal reflux disease) (Acute) Weight loss (Acute) Past Medical History Medical History Insomnia Osteoporosis Abnormal CT scan, colon Depression Chronic low back pain Hypertension Fibromyalgia Hypercholesterolemia Lumbar spondylitis Diabetes mellitus Osteopenia Family History Family History Family/Other Breast cancer Family history of problems with anesthesia: No Surgical History Surgical History History of esophagogastroduodenoscopy (EGD) H/O colonoscopy S/P trigger finger release History of varicose vein ligation and stripping History of Problems with Anesthesia: No Social History Social History Housing: Apartment Are you a primary healthcare consultant to a significant other at home: No Do you presently have visiting nurse or other home services: No Alcohol intake: never Patient Tobacco Use Status: Never used Tobacco Smoked in Last 30 Days: No e-Cigarette/Vaping Use: Never Used Use of substances other than those prescribed or required for medical reasons: No Advance Directives: Yes Advance Directives Information Provided: Yes Advance Directives on File: No Advance Directives Date on File: 11/09/22 service: No Current occupation: retired [employer] Allergies Allergy/AdvReac Type Severity Reaction Status Date / Time No Known Drug Allergies Allergy Unknown UNKNOWN Verified 04/18/23 13:09 Home Medications Medication Instructions Recorded Confirmed Last Taken Type aspirin 81 mg tablet,delayed 81 mg PO DAILY 02/09/21 11/09/22 11/08/22 History release (Adult Low Dose Aspirin) mecobalamin (vitamin B12) 1,000 1,000 mcg PO DAILY 02/09/21 11/09/22 Unknown History mcg chewable tablet simvastatin 40 mg tablet 40 mg PO DAILY 02/09/21 11/09/22 Unknown History latanoprost 0.005 % eye drops 1 drp ophthalmic (eye) QPM 03/09/2311/09/22 Unknown History insulin glargine 100 unit/mL (3 15 unit subcut QPM 02/10/22 11/09/22 Unknown History mL) subcutaneous pen (Lantus Solostar U-100 Insulin) lancets 33 gauge (OneTouch Delica #100 ea 02/10/22 02/10/22 Unknown History Plus Lancet) pen needle, diabetic 32 gauge x #50 ea 02/10/22 02/10/22 Unknown History (UltiCare Pen Needle) alcohol swabs (Alcohol Prep Pads) 0 pad topical QID 02/14/22 11/09/22 Unknown History fexofenadine 180 mg tablet 180 mg PO DAILY PRN allergies 02/14/22 11/09/22 Unknown History (Allergy Relief (fexofenadine)) fluticasone propionate 50 1 spray intranasal DAILY 02/14/22 11/09/22 Unknown History mcg/actuation nasal spray,suspension timolol maleate 0.5 % eye drops 1 drp ophthalmic (eye) QAM 02/14/22 11/09/22 Unknown History ferrous gluconate 324 mg (38 mg 324 mg PO QAM 07/13/22 11/09/22 Unknown History iron) tablet lrovbzft-ovy-obdex acid 0.4 1 tab PO QAM 07/13/22 11/09/22 Unknown History mg-lycopene 300 mcg-lutein 250 mcg tablet (Cer[employer]ite Senior) blood sugar diagnostic (OneTouch #10 ea 08/24/22 Unknown History Ultra Test strips) acetaminophen 500 mg tablet 1,000 mg PO Q8H PRN 03/23/23 Unknown History calcium carbonate 500 mg-vitamin 1 tab PO 03/23/23 Unknown History D3 10 mcg (400 unit) tablet (Oyster Shell Calcium-Vitamin D3) cyanocobalamin (vitamin B-12) 1,000 mcg PO QAM 03/23/23 Unknown History 1,000 mcg tablet duloxetine 20 mg capsule,delayed 40 mg PO QAM 03/23/23 Unknown History release empagliflozin 25 mg-metformin ER 1 tab PO QAM 03/23/23 Unknown History 1,000 mg tablet,extended release 24hr (Synjardy XR) eszopiclone 1 mg tablet 1 mg PO BEDTIME 03/23/23 Unknown History gabapentin 300 mg capsule 300 mg PO 03/23/23 Unknown History pilocarpine HCl 5 mg tablet 5 mg PO TID 03/23/23 Unknown History repaglinide 2 mg tablet 2 mg PO TID 03/23/23 Unknown History magnesium 200 mg tablet 200 mg PO DAILY 04/18/23 Unknown History Exam Height,Weight and Vital Signs: Height 5 ft 1 in Weight 45.359 kg Last Vital Signs Temp 98.1 F 05/11/23 12:21 Pulse 64 05/11/23 12:21 Resp 16 05/11/23 12:21 BP 108/59 L 05/11/23 12:21 Pulse Ox 96 05/11/23 12:21 O2 Del Method Room Air 05/11/23 12:21 Pertinent Lab Results Pertinent Lab Results: Laboratory Tests 05/11/23 10:09 WBC 5.9 RBC 4.65 Hgb 14.6 D Hct 44.9 D MCV 96.6 MCH 31.4 MCHC 32.5 RDW 12.5 Plt Count 249 MPV 9.2 L Immature Gran % (Auto) 0.2 Neut % (Auto) 53.1 Lymph % (Auto) 28.3 [place] % (Auto) 9.3 Eos % (Auto) 8.9 H Baso % (Auto) 0.2 Lymph # (Auto) 1.7 [place] # (Auto) 0.6 Eos # (Auto) 0.5 H Baso # (Auto) 0.0 Abs Immat Gran (auto) 0.01 Absolute Neuts (auto) 3.2 Absolute Nucleated RBC 0.000 Nucleated RBC % (auto) 0.0 Sodium 142 Potassium 4.6 Chloride 106 Carbon Dioxide 29 Anion Gap 12 BUN 23 H Creatinine 0.88 Estim Creat Clear Calc 40.7 Estimated GFR > 60 Random Glucose 121 H Calcium 9.5 Troponin I High Sens < 2.7 Airway Mallampati Class: II TM Dist: >3cm Neck ROM: Full Partial: Upper and Lower Heart: rrr Lungs: cta Assessment and Plan Assessment Anesthesia Assessment: Anesthesia Plan Discussed and Chart Reviewed Final Anesthetic Review Family History of Problems with Anesthesia: No History of Problems with Anesthesia: No NPO: Yes ASA Class: III Final Preanesthetic Review: No Changes in Pt Med Stat, Meds/Allgs Chart Reviewed and Consent Obtained/Reviewed Patient Risk: Intermediate Procedure Risk: Intermediate Anesthetic Plan Anesthetic Plan: GA Disposition: Standard PACU
--- NOTE | 2023-05-11 14:28 | PC.NURSE ---
IV was inserted in ER.
[2023-05-11 14:34] LABS: Glucose, Whole Blood 72 mg/dL (60-115)
--- NOTE | 2023-05-11 17:05 | W.PM.OPN ---
Operative Note Operative Note Date of Service: 05/11/23 Narrative: FLEXIBLE TRANSORAL UPPER GASTROINTESTINAL ENDOSCOPY WITH BIOPSIES IN FOREIGN BODY REMOVAL Pre-op diagnosis: dysphagia, esophageal obstruction/food impaction Post-op diagnosis: dysphagia, gastric antral nodule Endoscopist:Drew Garcia MD Anesthesia: GA with ET tube (Dr Khan) Consent: Indications for the procedure and potential complications of bleeding, perforation, reaction to medications and missed diagnosis were discussed with the patient with the help of an [facility] educational speech language clinician, Minnie and informed consent was obtained. Instrument: Olympus GIF H 190 mid size upper endoscope Monitoring: Vital signs and clinical assessment, continuous EKG monitoring, Pulse oximetry, Carbon Dioxide monitoring and blood pressure monitoring were done throughout the procedure. Procedure: The patient was placed in the left lateral decubitis position and pre-procedure medications were administered and a bite block was placed. The endoscope was inserted into the mouth and advanced under direct vision to the third part of duodenum. A careful inspection was made as the upper endoscope was withdrawn including a retroflexed examination of the proximal stomach; Findings and interventions are described below. Findings: Larynx: ET tube in place Esophagus: Tortuous esophagus with decreased peristalsis. Food bolus (piece of a banana)seen impacted in the distal esophagus. Food bolus was gently pushed into the stomach and esophagus was cleared of the food bolus. GE junction at 35 cms. Irregular Z line - negative for Castillo's on biopsies in the past. Focal circumferential ulcers at 32 cms - likely related to impacted food bolus. No clear Schatzki's ring was noted. Stomach: Diffuse antral erythema with decreased fundal folds. A 10 mm benign appearing nodule in the pre-pylroric area - biopsied. Grade 2 flap valve on retroflexed examination of the cardia. Duodenum: Normal bulb and descending duodenum Intervention: Biopsies as noted above Impression and Post Procedure Diagnosis: Endoscopy Findings: ESOPHAGUS: Food bolus (piece of a banana)seen impacted in the distal esophagus. Food bolus was gently pushed into the stomach and esophagus was cleared of the food bolus. GE junction at 35 cms. Irregular Z line - negative for Castillo's on biopsies in the past. Focal circumferential ulcers at 32 cms - likely related to impacted food bolus. STOMACH: benign appearing pre-pyloric nodule - biopsied. Plan: Pt will be discharged home. She was advised to chew her food well and take it with sips of fluids. Await pathology results Patient has an appointment on 05/18/23 in the GI Clinic with Margarita Aquino NP. If pt has persistent dysphagia, consider further evaluation with a barium swallow. Above findings were reviewed with the patient and her son (over the phone)
== END 2023-05-11 17:43 | disposition home or self-care (01) ==
LOC: HO.ED 11:28 → HO.SSS 13:18
PROVIDERS: Emergency Provider Emergency Medicine; PCP Internal Medicine; Visit Provider Internal Medicine Gastroenterology
PROC: 0DJ08ZZ Inspection of Upper Intestinal Tract, Via Natural or Artificial Opening Endoscopic (ICD-10-PCS; CPT 43235; principal; 2023-05-11 16:20)
DX: K22.2 Esophageal obstruction (principal); K31.7 Polyp of stomach and duodenum; K31.89 Other diseases of stomach and duodenum; K25.9 Gastric ulcer, unspecified as acute or chronic, without hemorrhage or perforation; R13.10 Dysphagia, unspecified; T18.128A Food in esophagus causing other injury, initial encounter; W44.F3XA Food entering into or through a natural orifice, initial encounter; R11.2 Nausea with vomiting, unspecified; E11.9 Type 2 diabetes mellitus without complications; I10 Essential (primary) hypertension; E78.00 Pure hypercholesterolemia, unspecified; K21.9 Gastro-esophageal reflux disease without esophagitis; G47.9 Sleep disorder, unspecified; M79.7 Fibromyalgia; R63.4 Abnormal weight loss; Z68.1 Body mass index [BMI] 19.9 or less, adult; Z79.82 Long term (current) use of aspirin; Z79.4 Long term (current) use of insulin; Z79.02 Long term (current) use of antithrombotics/antiplatelets; Z79.899 Other long term (current) drug therapy; K22.9 Disease of esophagus, unspecified; Y93.9 Activity, unspecified; Y92.9 Unspecified place or not applicable; Y99.9 Unspecified external cause status
CPT/HCPCS: 43239; 43247; 36415; 80048; 82947; 84484; 85025; 88305; 88342; 93005; 99285; J1100; J2405; J2704

== ENCOUNTER → 2023-05-11 10:01 | Outpatient (BNV) | payer OTHER, SELFPAY | PROVIDERS: Emergency Provider Emergency Medicine; PCP Internal Medicine; Visit Provider Internal Medicine | DX: R07.9 Chest pain, unspecified (principal) | CPT/HCPCS: 93010 ==

== ENCOUNTER → 2023-05-11 13:15 | Outpatient (BNV) | payer OTHER, SELFPAY | PROVIDERS: Emergency Provider Emergency Medicine; PCP Internal Medicine; Visit Provider Internal Medicine Gastroenterology | DX: K22.2 Esophageal obstruction (principal); K21.9 Gastro-esophageal reflux disease without esophagitis | CPT/HCPCS: 43239; 99223 ==

== ENCOUNTER 2023-05-18 12:31 | Outpatient (AMB) | payer OTHER, SELFPAY ==
--- NOTE | 2023-05-18 12:44 | MHC.OFFVIS ---
Intake Vital Signs 05/18/23 13:04 Height 5 ft 1 in Weight 100 lb 1.438 oz BMI 18.9 BP 106/49 L Blood Pressure Location Rt brachial Position Sitting Pulse 66 Intake Visit Reasons: 6 month follow up Intake Note: Dalila presents in office today in 6 months follow up of GERD and dysphagia. CC: [place] [facility] [place] with esophageal obstructions. She states she was eating a banana and was not able to swallow. She underwent a flexible transoral upper endoscopy w/bx in foreign body removal. Denies having any other GI symptoms today. Emergency Generator Mechanic Required: Yes Emergency Generator Mechanic Language: [place] Accompanied by: Self / Same As Patient Allergies No Known Drug Allergies Allergy (Unknown, Verified 05/18/23 13:09) UNKNOWN HPI 6 month follow up HPI Details Assessment & Plan (1) GERD (gastroesophageal reflux disease): Code(s): K21.9 - Gastro-esophageal reflux disease without esophagitis Plan: [place] #Rakel Live She tolerated the procedure well. There was some confusion about her stopping the omeprazole, but given the fact that we do not know why she developed an ulcer I DO NOT recommend stopping the omeprazole - she thought someone told her not to take it at the end of November. She will continue therapy with omeprazole in the morning and famotidine q.h.s.. This is especially important given the like the biopsy shows there is still some healing going on with her ulcer although was not visualized on exam. The senna continues to move her bowels. She has not pain and is eating well. ROV 6 mos. (2) Chronic idiopathic constipation: Code(s): K59.04 - Chronic idiopathic constipation (3) Gastric ulcer: Code(s): K25.9 - Gastric ulcer, unspecified as acute or chronic, without hemorrhage or perforation EMERGENT EGD - [facility] 05/13/23 Findings: Larynx: ET tube in place Esophagus: Tortuous esophagus with decreased peristalsis. Food bolus (piece of a banana)seen impacted in the distal esophagus. Food bolus was gently pushed into the stomach and esophagus was cleared of the food bolus. GE junction at 35 cms. Irregular Z line - negative for Castillo's on biopsies in the past. Focal circumferential ulcers at 32 cms - likely related to impacted food bolus. No clear Schatzki's ring was noted. Stomach: Diffuse antral erythema with decreased fundal folds. A 10 mm benign appearing nodule in the pre-pylroric area - biopsied. Grade 2 flap valve on retroflexed examination of the cardia. Duodenum: Normal bulb and descending duodenum Intervention: Biopsies as noted above Impression and Post Procedure Diagnosis: Endoscopy Findings: ESOPHAGUS: Food bolus (piece of a banana)seen impacted in the distal esophagus. Food bolus was gently pushed into the stomach and esophagus was cleared of the food bolus. GE junction at 35 cms. Irregular Z line - negative for Castillo's on biopsies in the past. Focal circumferential ulcers at 32 cms - likely related to impacted food bolus. STOMACH: benign appearing pre-pyloric nodule - biopsied. Plan: Pt will be discharged home. She was advised to chew her food well and take it with sips of fluids. Await pathology results Patient has an appointment on 05/18/23 in the GI Clinic with Margarita Aquino NP. If pt has persistent dysphagia, consider further evaluation with a barium swallow. Above findings were reviewed with the patient and her son (over the phone) TODAY'S VISIT [place] #Ara LIve She suffered a food impaction when eating a plantain and presented to the ER. She was seen by Dr. Garcia and the impaction was removed endoscopically. Subsequently, she had another episode with a magnesium pill and had to go to the [place] and cough and cough until I got it up. She states she does not feel like she is choking. I recommend that she crush all meds or open capsules until her esophagus has a chance to heal. I will get a barium swallow to evaluate if there is any other reversible causes of her dysphagia. We also discussed safe swallowing precautions in detail since she this is not the only time she has had to have a food bolus removed endoscopically-she had this few years ago at [facility] as well. Will set up a 3 month check in to make sure I keep tabs on her but also see her after the barium swallow. [facility] Medical History Insomnia Osteoporosis Abnormal CT scan, colon Depression Chronic low back pain Hypertension Fibromyalgia Hypercholesterolemia Lumbar spondylitis Diabetes mellitus Osteopenia Surgical History History of esophagogastroduodenoscopy (EGD) H/O colonoscopy S/P trigger finger release History of varicose vein ligation and stripping Family History Family/Other Breast cancer Social History Housing: Apartment Are you a primary lpn care manager to a significant other at home: No Do you presently have visiting nurse or other home services: No Alcohol intake: never Patient Tobacco Use Status: Never used Tobacco e-Cigarette/Vaping Use: Never Used Advance Directives Date on File: 11/09/22 service: No Current occupation: retired Review of Systems Const Denies fatigue, Denies fever(s), Denies night sweats, Denies poor appetite and Denies weight loss ENT Reports Normal hearing present, Denies dental pain, Reports dysphagia, Denies hearing loss, Denies mouth pain, Denies odynophagia, Denies throat swelling, Denies tongue swelling and Reports other (Dentition adequate) Card Reports no additional complaints Resp Reports no additional complaints GI Denies abdominal pain, Denies melena, Denies bloating, Denies hematochezia, Reports constipation, Denies GI cramping, Reports dysphagia, Denies excessive flatus, Denies early satiety, Reports heartburn, Denies diarrhea, Denies nausea, Denies odynophagia, Denies vomiting and Denies hematemesis Skin/Breast Denies pruritus, Denies lesions, Denies rash and Denies jaundice Neuro Reports Normal hearing present and Denies Abnormal speech present Endo Denies fatigue Aller/Immun Denies throat swelling and Denies tongue swelling Physical Exam Vital Signs: Last Vital Signs Pulse 66 05/18/23 13:04 BP 106/49 L 05/18/23 13:04 BMI result Body Mass Index 18.9 Const General: cooperative, no acute distress, well developed and well groomed Nutritional Appearance: average body habitus and well nourished Orientation/consciousness: oriented to person, oriented to place and oriented to time Limitations: language barrier HEENT Head: Yes normocephalic and Yes atraumatic Eyes General: appearance normal, both eyes and all related structures Pupils: Equal, round and reactive pupils present Neck Neck: Yes normal visual inspection and Yes no lymphadenopathy Thyroid: Thyroid normal Resp Effort & Inspection: normal respiratory effort and able to speak in complete sentences Auscultation: clear to auscultation bilaterally Cardio Rate: regular rate Rhythm: regular rhythm Heart sounds: Normal, physiologic split S2 sound present Peripheral pulses: radial pulses present and posterior tibial pulses present GI Inspection: No distended and No Abdominal panniculus present Palpation (GI): Soft to palpation, nontender, no guarding, not rigid and No hepatosplenomegaly present Percussion: Yes normal to percussion Auscultation: normal bowel sounds Rectal Exam - Female: deferred Skin General skin exam: no rashes or lesions noted, turgor normal, skin not dry, no jaundice, No spider nevi and no striae Rashes: no rashes Nails: normal Neuro General: oriented to person, oriented to place and oriented to time Cranial nerves: Yes Equal, round and reactive pupils present and Yes Normal hearing present Speech: No Abnormal speech present Extrem General: Yes normal to inspection, No clubbing, No cyanosis and No edema Psych Appearance: grossly normal and well kempt Mental Status: mental status grossly normal Speech and movement: Normal speech and movement present Affect: normal affect Attitude: cooperative Thought process: Normal thought process present and not confabulating Thought content: Normal thought content present Insight: Limited insight present (Psych) Judgement: Limited judgement present (Psych) Results Reviewed Results Reviewed: EMERGENT EGD - [facility] 05/13/23 Findings: Larynx: ET tube in place Esophagus: Tortuous esophagus with decreased peristalsis. Food bolus (piece of a banana)seen impacted in the distal esophagus. Food bolus was gently pushed into the stomach and esophagus was cleared of the food bolus. GE junction at 35 cms. Irregular Z line - negative for Castillo's on biopsies in the past. Focal circumferential ulcers at 32 cms - likely related to impacted food bolus. No clear Schatzki's ring was noted. Stomach: Diffuse antral erythema with decreased fundal folds. A 10 mm benign appearing nodule in the pre-pylroric area - biopsied. Grade 2 flap valve on retroflexed examination of the cardia. Duodenum: Normal bulb and descending duodenum Intervention: Biopsies as noted above Impression and Post Procedure Diagnosis: Endoscopy Findings: ESOPHAGUS: Food bolus (piece of a banana)seen impacted in the distal esophagus. Food bolus was gently pushed into the stomach and esophagus was cleared of the food bolus. GE junction at 35 cms. Irregular Z line - negative for Castillo's on biopsies in the past. Focal circumferential ulcers at 32 cms - likely related to impacted food bolus. STOMACH: benign appearing pre-pyloric nodule - biopsied. Plan: Pt will be discharged home. She was advised to chew her food well and take it with sips of fluids. Await pathology results Patient has an appointment on 05/18/23 in the GI Clinic with Margarita Aquino NP. If pt has persistent dysphagia, consider further evaluation with a barium swallow. Above findings were reviewed with the patient and her son (over the phone Assessment & Plan Assessment & Plan (1) Acute esophageal obstruction: Code(s): K22.2 - Esophageal obstruction (2) Dysphagia: Comment: solid food sticking med sternal area Code(s): R13.10 - Dysphagia, unspecified (3) Chronic idiopathic constipation: Code(s): K59.04 - Chronic idiopathic constipation (4) GERD (gastroesophageal reflux disease): Code(s): K21.9 - Gastro-esophageal reflux disease without esophagitis Plan [place] #Ara LIve She suffered a food impaction when eating a plantain and presented to the ER. She was seen by Dr. Garcia and the impaction was removed endoscopically. Subsequently, she had another episode with a magnesium pill and had to go to the [place] and cough and cough until I got it up. She states she does not feel like she is choking. I recommend that she crush all meds or open capsules until her esophagus has a chance to heal. I will get a barium swallow to evaluate if there is any other reversible causes of her dysphagia. We also discussed safe swallowing precautions in detail since she this is not the only time she has had to have a food bolus removed endoscopically-she had this few years ago at [facility] as well. She continues on omeprazole in the morning and famotidine at night and utilizes senna for constipation. Will set up a 3 month check in to make sure I keep tabs on her but also see her after the barium swallow. Orders: Orders [place] barium swallow Today K22.2 - Esophageal obstruction, R13.10 - Dysphagia, unspecified Medications: Refilled famotidine (Pepcid) 40 mg PO BEDTIME 30 tabs 6RF K25.9 - Gastric ulcer, unspecified as acute or chronic, without hemorrhage or perforation omeprazole 40 mg PO QAM 30 caps 6RF K21.9 - Gastro-esophageal reflux disease without esophagitis sennosides (senna) 17.2 mg (2 x 8.6 mg) PO BEDTIME 60 tabs 6RF for constipation Coding Level of Care Code Est Pt Level 3 (79200) Diagnoses Acute esophageal obstruction K22.2 Dysphagia R13.10 Chronic idiopathic constipation K59.04 GERD (gastroesophageal reflux disease) K21.9
[2023-05-18 13:04] VITALS: BP 106/49; PULSE 66; BMI 18.9
== END 2023-05-18 13:33 | disposition home or self-care (01) ==
PROVIDERS: PCP Internal Medicine; Visit Provider Nurse Practitioner
DX: K22.2 Esophageal obstruction (principal); R13.10 Dysphagia, unspecified; K59.04 Chronic idiopathic constipation; K21.9 Gastro-esophageal reflux disease without esophagitis
CPT/HCPCS: 99213

== ENCOUNTER → 2023-05-18 12:31 | Outpatient (BNVA) | payer OTHER, SELFPAY | PROVIDERS: PCP Internal Medicine; Visit Provider Nurse Practitioner | DX: K59.04 Chronic idiopathic constipation (principal); K22.2 Esophageal obstruction; K21.9 Gastro-esophageal reflux disease without esophagitis; R13.10 Dysphagia, unspecified | CPT/HCPCS: 99212 ==